=== PATIENT | male | born 1975 | race Caucasian/White ===

== ENCOUNTER 2024-03-23 10:21 | Outpatient (REF) | payer OTHER, SELFPAY ==
[2024-03-23 14:17] LABS: MANUAL DIFF FLAG NO
[2024-03-23 14:28] LABS: Basophils Absolute Auto 0.1 X10*3/uL (0.0-0.2); Basophils Percent Auto 1.1 % (0-2); Eosinophils Absolute Auto 0.2 X10*3/uL (0.0-0.4); Eosinophils Percent Auto 2.8 % (0-4); Hematocrit 41.2 % (42.0-52.0); Hemoglobin 14.1 g/dl (14.0-18.0); Imm Gran Abs Auto 0.03 X10*3/uL (0.00-0.03); Imm Gran Pct Auto 0.4 % (0.0-0.4); Lymphocytes Absolute Auto 1.9 X10*3/uL (1.2-4.9); Lymphocytes Percent Auto 23.1 % (20-40); Mean Corpuscular HGB Conc 34.2 g/dl (31.0-36.0); Mean Corpuscular Hemoglobin 29.5 pg (27.0-33.0); Mean Corpuscular Volume 86.2 fL (80.0-98.0); Mean Platelet Volume 10.2 fL (9.4-12.4); Monocytes Absolute Auto 0.6 X10*3/uL (0.1-1.2); Monocytes Percent Auto 7.8 % (2-11); Neutrophils Absolute Auto 5.3 x10*3/uL (2.0-8.3); Neutrophils Percent Auto 64.8 % (45-73); Platelet Count 314 X10*3/uL (160-400); Red Blood Count 4.78 X10*6/uL (4.60-5.80); Red Cell Distribution Width 12.3 % (11.0-16.0); White Blood Count 8.2 X10*3/uL (4.8-10.8)
[2024-03-23 14:54] LABS: Alanine Aminotransferase 15 U/L (0-40); Albumin Level 4.4 g/dL (3.5-5.0); Alkaline Phosphatase 63 U/L (39-117); Anion Gap 15 (12-20); Aspartate Amino Transferase 22 U/L (5-37); Bilirubin Total 0.7 mg/dL (0.0-1.0); Blood Urea Nitrogen 12 mg/dL (9-16); Calcium 9.4 mg/dL (8.4-10.2); Carbon Dioxide 27 mmol/L (22-29); Chloride 102 mmol/L (96-108); Cholesterol 202 mg/dL (<200); Estimated Glomerular Filt Rate > 60; Glucose Random 138 mg/dL (60-115); HDL Cholesterol 38 mg/dL (>40); LDL Cholesterol Calculated 137 mg/dL (<100); Sodium 140 mmol/L (135-145); Total Protein 7.1 g/dL (6.5-8.0); Triglycerides 138 mg/dL (<150)
[2024-03-23 15:12] LABS: TSH reflex Free T4 1.83 uIU/mL (0.32-4.0)
[2024-03-24 08:15] LABS: HIV AB/AG Nonreactive (Nonreactive); HIV Num 1 0.05 S/CO (0.00-0.99); ~HepC Num1 0.12 S/CO (0.00-0.79); ~Hepatitis C Antibody Nonreactive (Nonreactive)
== END 2024-03-23 10:22 | disposition home or self-care (01) ==
LOC: HO.CHCLDS 10:21
PROVIDERS: Visit Provider Internal Medicine
DX: Z00.00 Encounter for general adult medical examination without abnormal findings (principal); I10 Essential (primary) hypertension; E11.65 Type 2 diabetes mellitus with hyperglycemia; E03.9 Hypothyroidism, unspecified
CPT/HCPCS: 36415; 80053; 80061; 84443; 85025; 86803; 87389

== ENCOUNTER → 2024-06-09 15:07 | Outpatient (REF) | payer OTHER, SELFPAY ==
--- NOTE | 2024-06-09 15:10 | CA_ITS ---
Transthoracic Echocardiogram Amended Patient (Last, First, Middle): Richard Parson J Gender: Male Date of : 1975 Age: 48 Procedure Date: 06/09/2024 Procedure Type: Transthoracic Echocardiogram Location: OP Height: 170.18 cm Weight: 85.28 kg BSA: 1.97 m2 Heart Rate: 77 bpm BP: 125 / 76 mmHg Floor Polisher: SB Referring MD: Katina Guevara MD Equal Opportunity Representative: Jersey Ariza MD Symptoms: HTN I1.0 DM Q BWAVE IN LEAD 111 Study Quality: Adequate ECG Rhythm: Sinus Conclusions: - 1. Low normal LV ejection fraction 50-55% with wall motion abnormality that could suggest underlying coronary artery disease 2. Normal cardiac valvular Dopplers 3. Normal RV systolic pressure 4. No gross pericardial effusion Findings Left Ventricle Normal left ventricular cavity size. There is normal left ventricular wall thickness. The left ventricular systolic function is low normal. The visually estimated ejection fraction is between 50-55%. Spectral Doppler is indicative of a normal filling pattern. Wall Motion Rest Echo Findings The inferoseptal wall and basal inferior segment are hypokinetic. All other scored wall segments showed normal motion. Right Ventricle Normal right ventricular cavity size and systolic function. Atria Both atria are normal in size. There is no evidence of interatrial shunt. Aortic Valve Normal aortic valve structure and function. There is no aortic valve stenosis. There is no aortic valve regurgitation. Mitral Valve Normal mitral valve structure and function. There is trace mitral valve regurgitation. There is no mitral valve stenosis. Pulmonic Valve The pulmonic valve was not well visualized. Tricuspid Valve Likely normal tricuspid valve structure and function. There is trace tricuspid valve regurgitation. The right ventricular systolic pressure is normal. The right ventricular systolic pressure is 23 mmHg. Normal right atrial pressure. There is no evidence of pulmonary hypertension. Great Vessels All visible segments of the aorta are normal in size. The pulmonary artery was not well visualized. There is no dilatation of the ascending aorta measuring 3.40 cm. Venous The inferior vena cava is normal in size and collapses greater than 50% with inspiration. Pericardium/Pleural There is no evidence of pericardial effusion. Prior Study Comparison No prior study available for comparison. Measurements 2D Linear Measurements IVSd: 1.20 0.6-0.9/0.6-1.0 cm LVIDd: 4.43 3.9-5.3/4.2-5.9 cm LVIDd Index: 2.25 2.4-3.2/2.2-3.1 cm/m2 LVIDs: 3.09 2.0-3.6 cm LVPWd: 0.68 0.7-1.1 cm LV Mass: 170.25 67-162/88-224 g LV Mass Index: 86.42 43-95/49-115 g/m2 LVOT Diam: 2.30 3.0+(-)1.3 cm 2D Volumes LA Vol: 20.70 2D Systolic Function EF 4C: 50.60 >55% EF 2C: 58.30 >55% EF BiP: 53.90 >55% Mitral Valve MV Pk E: 0.90 MV PK A: 0.85 MV Decel Time: 170.00 E/A: 1.10 E'Lateral: 8.43 E'Medial: 5.49 E/E' Med: 16.40 E/E' Lat: 10.70 PHT: 50.00 MVA PHT: 4.40 Decel Grady: 5.29 Aortic Valve AoV Pk Cooper: 1.07 AoV Pk Grad: 5.00 STEVEN: 3.54 LVOT LVOT Pk Cooper: 0.91 LVOT Mn Cooper: 0.69 LVOT VTI: 0.20 LVOT Pk Grad: 3.00 LVOT Mn Grad: 2.00 LVOT Diam: 2.30 LVOT Area: 4.15 Diastolic Function MV Pk E: 0.90 MV Pk A: 0.85 E/A: 1.10 E'Medial: 5.49 E/E' Med: 16.40 E' Laterial: 8.43 E/E' Lat: 10.70 Right Ventricle TAPSE (mm): 17.40 TVS' Cooper: 13.70 Tricuspid Valve TR Pk Cooper: 2.22 TR Pk Grad: 20.00 RA Press: 3.00 RVSP: 23.00 Great Vessels Aorta Sinus of Valsalva: 3.80 2.0-3.5 cm Ao Asc: 3.40 2.1-3.4 cm Pulmonary Veins Pulm Vein S/D 1.30 Pulmonary Valve PV Pk Cooper: 0.87 Peak PV Grad: 3.00 Updated in Other Vendor System with Status of Final Jersey Ariza MD electronically signed on 06/10/2024 4:06:30 PM with status of Final
== END ==
LOC: HO.CARD 15:07
PROVIDERS: PCP Internal Medicine; Visit Provider Internal Medicine
DX: I10 Essential (primary) hypertension (principal); E11.65 Type 2 diabetes mellitus with hyperglycemia
CPT/HCPCS: 93306

== ENCOUNTER → 2024-06-09 15:10 | Outpatient (BNV) | payer OTHER, SELFPAY | PROVIDERS: PCP Internal Medicine; Visit Provider Internal Medicine Cardiovascular Disease | DX: I10 Essential (primary) hypertension (principal); I36.1 Nonrheumatic tricuspid (valve) insufficiency | CPT/HCPCS: 93306 ==

== ENCOUNTER 2024-06-12 15:42 | Outpatient (REF) | payer OTHER, SELFPAY ==
--- OUTSIDE RECORDS SUMMARY | 2024-06-12 15:44 | XMS_ITS | Encounter Summary ---
Author Organization [employer] Address [address] [address] Care Team Providers Care Wine Sales Representative Name Role Phone Katina Guevara MD Primary Care Provider [phone] Encounter Details Date Type Department Care Team ([facility] st Contact Info) Description 05/27/2024 Orders Only [facility] CHC MED & PEDS [address] [place], [place] [phone] Katina Guevara MD [address] [place] [address] Social History Tobacco Use Types Packs/Day Years Used Date Smoking Tobacco: Never Smokeless Tobacco: Never Alcohol Use Standard Drinks/Week Comments Never 0 (1 standard drink = 0.6 oz pur e alcohol) Alcohol Answer Date Recorded Q1: How often do you have a drink containing alc ohol? 2 03/23/2024 Q2: How many drinks containi ng alcohol do you have on a typical day when you are drinking? 0 03/23/2024 Q3: How often do you have six or more drinks on one occasion? 2 03/23/2024 Depression Answer Date Recorded Patient Health Questionnaire-9 Score 0 03/23/2024 Patient Health Questionnaire-9 Score 0 03/23/2024 Last PHQ-9: Questionnaire Data Not on file 1 05/23/2023 Housing Stability Answer Date Recorded What is your housing situation today? I have chad bowen 03/12/[address] you li ve. Do you have problems with any of the following? None of the above 03/12/2024 Food Insecurity Answer Date Recorded Within the past 12 months, y ou worried that your food would run out before you got money to buy more: Never True 03/12/2024 Within the past 12 months,th e food you bought just didn't last and you didn't have enough money to get more: Never True Transportation Answer Date Recorded In the past 12 months, has l ack of transportation kept you from medical appts, meetings, work or from getting things needed for daily living? No 03/12/2024 Utilities Answer Date Recorded In the past 12 months, has t he electric, gas, oil or water company threatened to shut off services in your home? No 03/12/2024 Depression Answer Date Recorded Patient Health Questionnaire-2 Score 0 03/23/2024 Internet Access Answer Date Recorded Internet Access Q1 Yes 03/12/2024 Internet Access Q2 Not on file 03/12/2024 Sex and Gender Information Value Date Recorded Sex Assigned at Male 02/26/2022 10:37 AM EDT Legal Sex Male 10:37 AM EDT Gender Identity Male 02/26/2022 10:37 AM EDT Sexual Orientation Straight 02/26/2022 10 :37 AM EDT documented as of this encounter Plan of Treatment Upcoming Encounters Date Type Department Care Team (Late st Contact Info) Description 06/18/2024 9:00 AM EST Telemedicine [facility] MED & PEDS [address] [place] [address] Katina Guevara MD [address] [place] [address] documented as of this encounter Visit Diagnoses Not on filedocumented in this encounter Additional Health Concerns Assessment Noted Time PHQ-9 Depression Total Score: 0 03/23/20 24 10:15 AM EST documented as of this encounter Care Teams Wine Sales Representative Relationship Specialty Start Date End Date Katina Guevara MD [address] [place] [address] PCP - General Internal Medicine 06/28/20 documented as of this encounter
--- OUTSIDE RECORDS SUMMARY | 2024-06-12 15:44 | XMS_ITS | Encounter Summary ---
Author Organization [employer] Address [address] [place] [address] Care Team Providers Care Drafter Castings Name Role Phone Katina Guevara MD Primary Care Provider [phone] Reason for Visit * Reason Comments Med Refill Encounter Details Date Type Department Care Team (Late st Contact Info) Description 02/03/2023 Refill [facility] MED & PEDS [address] [place] [address] Katina Guevara MD [address] [place] [address] Social History Tobacco Use Types Packs/Day Years Used Date Smoking Tobacco: Never Assessed Sex and Gender Information Value Date Recorded Sex Assigned at Male 02/26/2022 10:37 AM EDT Legal Sex Male 10:37 AM EDT Gender Identity Male 02/26/2022 10:37 AM EDT Sexual Orientation Straight 02/26/2022 10 :37 AM EDT documented as of this encounter Plan of Treatment Upcoming Encounters Date Type Department Care Team (Late st Contact Info) Description 06/18/2024 9:00 AM EST Telemedicine [facility] CHC MED & PEDS [address] [place] [address] Katina Guevara MD [address] [place] [address] documented as of this encounter Visit Diagnoses Not on filedocumented in this encounter Care Teams Drafter Castings Relationship Specialty Start Date End Date Katina Guevara MD [address] [place], [place] [address] [address] PCP - General Internal Medicine 06/28/20 documented as of this encounter
--- OUTSIDE RECORDS SUMMARY | 2024-06-12 15:44 | XMS_ITS | Encounter Summary ---
Author Organization [employer] Address [address] [address] Care Team Providers Care Building Maintenance Supervisor Name Role Phone Katina Guevara MD Primary Care Provider [phone] Encounter Details Date Type Department Care Team ([facility] st Contact Info) Description 04/17/2024 Orders Only [facility] CHC MED & PEDS [address] [place], [place] [phone] Katina Guevara MD [address] [place] [address] Primary hypertension Social History Tobacco Use Types Packs/Day Years [...] Info) Description 06/18/2024 9:00 AM EST Telemedicine [facility] MED & PEDS [address] [place] [address] Katina Guevara MD [address] [place] [address] documented as of this encounter Visit Diagnoses Diagnosis Primary hypertension Unspecified essential hypertension documented in this encounter Additional Health Concerns Assessment Noted Time PHQ-9 Depression Total Score: 0 03/23/20 24 10:15 AM EST documented as of this encounter Care Teams Building Maintenance Supervisor Relationship Specialty Start Date End Date Katina Guevara MD [address] [place] [address] PCP - General Internal Medicine 06/28/20 documented as of this encounter
--- OUTSIDE RECORDS SUMMARY | 2024-06-12 15:44 | XMS_ITS | Encounter Summary ---
Author Organization [employer] Address [address] [address] Care Team Providers Care Transcriptionist Name Role Phone Katina Guevara MD Primary Care Provider [phone] Encounter Details Date Type Department Care Team (Latest Contact Info) Description 03/23/2024 Orders Only [facility] CHC MED & PEDS [address] [place], [place] [phone] Katina Guevara MD [address] [place] [address] Hypercholesterolemia (Primary Dx); Primary hypertension Social History Tobacco Use Types [...] Info) Description 06/18/2024 9:00 AM EST Telemedicine [facility] MED & PEDS [address] [place] [address] Katina Guevara MD [address] [place] [address] documented as of this encounter Visit Diagnoses Diagnosis Hypercholesterolemia- Primary Pure hypercholesterolemia Primary hypertension Unspecified essential hypertension documented in this encounter Additional Health Concerns Assessment Noted Time PHQ-9 Depression Total Score: 0 03/23/20 24 10:15 AM EST documented as of this encounter Care Teams Transcriptionist Relationship Specialty Start Date End Date Katina Guevara MD [address] [place] [address] PCP - General Internal Medicine 06/28/20 documented as of this encounter
--- OUTSIDE RECORDS SUMMARY | 2024-06-12 15:44 | XMS_ITS | Encounter Summary ---
Author Organization [employer] Address [address] [place] [address] Care Team Providers Care Printing Film Stripper Name Role Phone Katina Guevara MD Primary Care Provider [phone] Encounter Details Date Type Department Care Team (Late Contact Info) Description 07/24/2023 Orders Only [facility] MED & PEDS [address] [place] [address] Katina Guevara MD [address] [place] [address] Type 2 diabetes mellitus with hyperglycemia, without long-term current use of insulin ([facility]) (Primary Dx); Acquired hypothyroidism Social History Tobacco Use Types Packs/Day Years Used Date Smoking Tobacco: Never Smokeless Tobacco: Never Alcohol Use Standard Drinks/Week Comments Never 0 (1 standard drink = 0.6 oz pur e alcohol) Sex and Gender Information Value Date Recorded Sex Assigned at Male 02/26/2022 10:37 AM EDT Legal Sex Male 10:37 AM EDT Gender Identity Male 02/26/2022 10:37 AM EDT Sexual Orientation Straight 02/26/2022 10 :37 AM EDT documented as of this encounter Plan of Treatment Upcoming Encounters Date Type Department Care Team (Late Contact Info) Description 06/18/2024 9:00 AM EST Telemedicine [facility] CHC MED & PEDS [address] [place] [address] Katina Guevara MD [address] [place], [place] [phone] documented as of this encounter Visit Diagnoses Diagnosis Type 2 diabetes mellitus with hyperglycemia, without long-term current use of insulin ([facility])- Primary Acquired hypothyroidism Unspecified hypothyroidism documented in this encounter Care Teams Printing Film Stripper Relationship Specialty Start Date End Date Katina Guevara MD [address] [place] [address] PCP - General Internal Medicine 06/28/20 documented as of this encounter
--- OUTSIDE RECORDS SUMMARY | 2024-06-12 15:44 | XMS_ITS | Encounter Summary ---
Author Organization [employer] Address [address] [place] [address] Care Team Providers Care Custom Applicator Name Role Phone Katina Guevara MD Primary Care Provider [phone] Encounter Details Date Type Department Care Team (Late st Contact Info) Description 02/13/[address] [facility] MED & PEDS [address] [place] [address] Katina Guevara MD [address] [place] [address] Social History Tobacco Use Types Packs/Day Years [...] Info) Description 06/18/2024 9:00 AM EST Telemedicine [facility] CHC MED & PEDS [address] [place] [address] Katina Guevara MD [address] [place] [address] documented as of this encounter Visit Diagnoses Not on filedocumented in this encounter Care Teams Custom Applicator Relationship Specialty Start Date End Date Katina Guevara MD [address] [place] [address] PCP - General Internal Medicine 06/28/20 documented as of this encounter
--- OUTSIDE RECORDS SUMMARY | 2024-06-12 15:44 | XMS_ITS | Encounter Summary ---
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) Katina Geuvara MD [address] [place] [address] Phone: tel: fax: Referral ID Status Reason Start Date Expiration Date Visits Re quested Visits Authorized [id number] Closed 1 1 Encounter Details Date Type Department Care Team ([facility] Contact Info) Description 10/25/2023 Orders Only [facility] CHC MED & PEDS [address] [place] [address] Katina Guevara MD [address] [place] [address] Acquired hypothyroidism; 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
--- OUTSIDE RECORDS SUMMARY | 2024-06-12 15:44 | XMS_ITS | Encounter Summary ---
Author Organization [employer] Address [address] [place] [address] Care Team Providers Care Organizational Development Manager Name Role Phone Katina Guevara MD Primary Care Provider [phone] Reason for Visit * Reason Comments Med Change Request Encounter Details Date Type Department Care Team (Late Contact Info) Description 09/19/2023 Refill [facility] MED & PEDS [address] [place] [address] Katina Guevara MD [address] [place] [address] Type 2 diabetes mellitus with hyperglycemia, without long-term current use of insulin ([facility]) Social History Tobacco Use Types Packs/Day Years [...] Info) Description 06/18/2024 9:00 AM EST Telemedicine [facility] CHC MED & PEDS [address] [place] [address] Katina Guevara MD [address] [place] [address] documented as of this encounter Visit Diagnoses Diagnosis Type 2 diabetes mellitus with hyperglycemia, without long-term current use of insulin ([facility]) documented in this encounter Care Teams Organizational Development Manager Relationship Specialty Start Date End Date Katina Guevara MD [address] [place] [address] PCP - General Internal Medicine 06/28/20 documented as of this encounter
--- OUTSIDE RECORDS SUMMARY | 2024-06-12 15:44 | XMS_ITS | Encounter Summary ---
Author Organization [employer] Address [address] [place] [address] Care Team Providers Care Furnace Combustion Tester Name Role Phone Katina Guevara MD Primary Care Provider [phone] Encounter Details Date Type Department Care Team (Late st Contact Info) Description 03/19/2023 Orders Only [facility] MED & PEDS [address] [place] [address] Katina Guevara MD [address] [place] [address] Social History Tobacco Use Types Packs/Day Years [...] Info) Description 06/18/2024 9:00 AM EST Telemedicine [facility] CHC MED & PEDS [address] [place] [address] Katina Guevara MD [address] [place] [address] documented as of this encounter Visit Diagnoses Not on filedocumented in this encounter Care Teams Furnace Combustion Tester Relationship Specialty Start Date End Date Katina Guevara MD [address] [place] [address] PCP - General Internal Medicine 06/28/20 documented as of this encounter
--- OUTSIDE RECORDS SUMMARY | 2024-06-12 15:44 | XMS_ITS | Encounter Summary ---
Author Organization [employer] Address [address] [address] Care Team Providers Care Monkey Breeder Name Role Phone Katina Guevara MD Primary Care Provider [phone] Encounter Details Date Type Department Care Team (Late Contact Info) Description 11/27/2023 Orders Only [facility] MED & PEDS [address] [place] [address] Katina Guevara MD [address] [place] [address] Social History Tobacco Use Types Packs/Day Years [...] Info) Description 06/18/2024 9:00 AM EST Telemedicine [facility] CHC MED & PEDS [address] [place] [address] Katina Guevara MD [address] [place] [address] documented as of this encounter Visit Diagnoses Not on filedocumented in this encounter Care Teams Monkey Breeder Relationship Specialty Start Date End Date Beauzile, Thevenin, MD [address] [place] [address] PCP - General Internal Medicine 06/28/20 documented as of this encounter
--- OUTSIDE RECORDS SUMMARY | 2024-06-12 15:44 | XMS_ITS | Encounter Summary ---
Author Organization [employer] Address 75 [facility] [address] [place] [address] Care Team Providers Care Varitype Operator Name Role Phone Ktaina Guevara MD Primary Care Provider [phone] Reason for Referral * Consultation (Routine) - Authorized Specialty Diagnoses / Procedures Referred By Alex garrido Referred To Contact Cardiology Diagnoses Primary hypertension Regional wall motion abnormality of heart Katina Guevara MD [address] [place] [address] Phone: tel: fax: Jersey Ariza MD [address] [place] [address] 3rd [place] [address] Phone: tel: Referral ID Status Reason Start Date Expiration Date Visits Requested Visits Authorized [id number] Authorized Specialty Services Required 06/11/2024 06/11/2025 1 1 Encounter Details Date Type Department Care Team (Late st Contact Info) Description 06/11/2024 Orders Only [facility] CHC MED & PEDS [address] [place] [address] Katina Guevara MD [address] [place] [address] Primary hypertension (Primary Dx); Regional wall motion abnormality of heart Social History Tobacco Use Types Packs/Day Years [...] Upcoming Encounters Date Type Department Care Team ([facility] st Contact Info) Description 06/18/2024 9:00 AM EST Telemedicine [facility] CHC MED & PEDS 505 [facility] [place] [address] Katina Guevara MD [address] [place] [address] Scheduled Referrals Name Type Priority Associated Diagnoses Orde r Schedule Referral to Cardiology Outpatient Referral Routine Primary hypertension Regional wall motion abnormality of heart Expected: 06/11/2024 (Approximate), Expires: 06/11/2025 documented as of this encounter Visit Diagnoses Diagnosis Primary hypertension- Primary Unspecified essential hypertension Regional wall motion abnormality of heart documented in this encounter Additional Health Concerns Assessment Noted Time PHQ-9 Depression Total Score: 0 03/23/20 24 10:15 AM EST documented as of this encounter Care Teams Varitype Operator Relationship Specialty Start Date End Date Katina Guevara MD [address] [place] [address] PCP - General Internal Medicine 06/28/20 documented as of this encounter
--- OUTSIDE RECORDS SUMMARY | 2024-06-12 15:44 | XMS_ITS | Encounter Summary ---
Author Organization [email or web address] Address [address] [address] Care Team Providers Care Senior Medical Writer Name Role Phone Katina Guevara MD Primary Care Provider [phone] Encounter Details Date Type Department Care Team (Late Contact Info) Description 08/22/2023 Orders Only [facility] MED & PEDS [address] [place] [address] Katina Guevara MD [address] [place] [address] Type 2 diabetes mellitus with hyperglycemia, without long-term current use of insulin ([facility]) (Primary Dx) Social History Tobacco Use Types Packs/Day Years [...] Info) Description 06/18/2024 9:00 AM EST Telemedicine [facility] MED & PEDS [address] [place] [address] Katina Guevara MD [address] [place] [address] documented as of this encounter Visit Diagnoses Diagnosis Type 2 diabetes mellitus with hyperglycemia, without long-term current use of insulin ([facility])- Primary documented in this encounter Care Teams Senior Medical Writer Relationship Specialty Start Date End Date Katina Guevara MD [address] [place] [address] PCP - General Internal Medicine 06/28/20 documented as of this encounter
--- OUTSIDE RECORDS SUMMARY | 2024-06-12 15:44 | XMS_ITS | Clinical Summary ---
Author Organization [facility] Address [address] [place] [address] Care Team Providers Care Compensation Intern Name Role Phone Dennis Abraham Primary Care Provider [phone] Allergies No known active allergies Medications Medication Sig Dispensed Refills Start Date End Date Status glipiZIDE (GLUCOTROL) 5 MG tablet Take 5 mg by mouth daily. 1 06/20/2018 Active levothyroxine (SYNTHROID, LEVOTHROID) 50 MCG tablet Take 50 mcg by mouth daily. 1 06/29/2018 Active metFORMIN (GLUCOPHAGE) 1000 MG tablet TAKE 1 TAB BY MOUTH WITH BREAKFAST AND 1.5 TABS WITH SUPPER ORALLY 1 05/27/2018 Active benzonatate (TESSALON) 200 MG capsuleIndications:A cute bronchitis, unspecified organism Take 1 capsule (200 mg total) by mouth 3 (three) times a day as needed for cough. 20 capsule 08/18/2018 Active azithromycin (ZITHROMAX) 250 MG tabletIndications:Ac ree bronchitis, unspecified organism Take 2 tabs PO on day one and one tabs on days 2-5 #6 6 tablet 08/18/2018 Active Active Problems No known active problems Social History Tobacco Use Types Packs/Day Years Used Date Smoking Tobacco: Never Assessed Sex and Gender Information Value Date Recorded Sex Assigned at Not on file Gender Identity Not on file Sexual Orientation Not on file Last Filed Vital Signs Vital Sign Reading Time Taken Comments Blood Pressure 172/93 08/18/2018 8:15 AM EDT Pulse 99 08/18/2018 8:15 AM EDT Temperature 37.5 ??C (99.5 ??F) 08/18/2018 8:15 AM ED T Respiratory Rate - - Oxygen Saturation 95% 08/18/2018 8:15 AM EDT Inhaled Oxygen Concentration - - Weight 85.3 kg (188 lb) 08/18/2018 8:15 AM EDT Height 170.2 cm (5' 7 ) 08/18/2018 8:15 AM EDT Body Mass Index 29.44 08/18/2018 8:15 AM EDT Plan of Treatment Health Maintenance Due Date Last Done Comments Hepatitis C Virus Screening 1975 HIV Screening 07/21/1988 DTaP/Tdap/Td Vaccines (1 - Tdap) 07/21/1994 Hepatitis B Vaccines (1 of 3 - 19+ 3-dose series) 07/21/1994 Colonoscopy 07/21/2020 Influenza Vaccine 11/28/2023 COVID-19 Vaccine ( - 2023-2 5 season) 2023 Pneumococcal Vaccine: Pediat arabelal (0-5 Years) and At-Risk Patients (6 to 49 Years) Aged Out No longer eligible b ased on patient's age to complete this topic Care Teams Compensation Intern Relationship Specialty Start Date End Date Dennis Abraham [address] [place] [id number] PCP - General 08/18/18
--- OUTSIDE RECORDS SUMMARY | 2024-06-12 15:44 | XMS_ITS | Clinical Summary ---
Author Organization [facility] Address [address] [place] [address] Care Team Providers Care Toilet Attendant Name Role Phone Unavailable Primary Care Provider Unavailabl e Allergies No known active allergies Immunizations Name Administration Dates Next Due Covid-19 (Pfizer) Dilution Required 09/06/2020,0 08/16/2020 Social History Tobacco Use Types Packs/Day Years Used Date Smoking Tobacco: Never Assessed Sex and Gender Information Value Date Recorded Sex Assigned at Not on file Gender Identity Not on file Sexual Orientation Not on file Job Start Date Occupation Industry Not on file Not on file Not on file Plan of Treatment Health Maintenance Due Date Last Done Comments Hepatitis B Vaccines (1 of 3 - 3-dose series) 1975 Hepatitis C Screening 1975 Depression Screening 1987 Preventative Health Evaluation 07/21/1993 DTap / Tdap / Td (1 - Tdap) 07/21/1994 Colon Cancer Screening (Colonoscopy) 07/21/2020 COVID-19 Vaccine (2023-2 5 season) 2023 09/06/2020, 08/16/2020 Influenza Vaccine (#1) 2023 Pneumococcal Vaccine Aged Out No long er eligible based on patient's age to complete this topic RSV Ped < 20 months Aged Out No longe r eligible based on patient's age to complete this topic
--- OUTSIDE RECORDS SUMMARY | 2024-06-12 15:44 | XMS_ITS | Encounter Summary ---
Author Organization [employer] Address [address] [address] Care Team Providers Care Press Officer Name Role Phone Katina Guevara MD Primary Care Provider [phone] Encounter Details Date Type Department Care Team (Late Contact Info) Description 06/19/2023 Orders Only [facility] [address] [place] [address] Katina Guevara MD [address] [place] [address] Social History Tobacco Use Types Packs/Day Years [...] Info) Description 06/18/2024 9:00 AM EST Telemedicine [facility] [address] [place] [address] Katina Guevara MD [address] [place] [address] documented as of this encounter Visit Diagnoses Not on filedocumented in this encounter Care Teams Press Officer Relationship Specialty Start Date End Date Beauzile, Thevenin, MD [address] [place] [id number] PCP - General Internal Medicine 06/28/20 documented as of this encounter
--- OUTSIDE RECORDS SUMMARY | 2024-06-12 15:44 | XMS_ITS | Clinical Summary ---
Author Organization [employer] Address [address] [place] [address] Care Team Providers Care Glued Wood Tester Name Role Phone Katina Guevara MD Primary Care Provider [phone] Allergies No known active allergies Medications ergocalciferol (Vitamin D-2) 1.25 MG (52319 UT) capsule 1 capsule a week for 12 weeks 1 Active dapagliflozin (Farxiga) 5 MGIndications:Type 2 diabetes mellitus with hyperglycemia, without long-term current use of insulin (CMS/HCC) Take 1 tablet (5 mg) by mouth in the morning. 30 tablet 11 4 Active metFORMIN (Glucophage) 1000 MG tabletIndications:T ype 2 diabetes mellitus with hyperglycemia, without long-term current use of insulin (CMS/HCC) Take 1 tablet (1,000 mg) by mouth every 12 (twelve) hours. 180 tablet 3 4 Active dulaglutide (Trulicity) 3 MG/0.5ML solution pen-injectorIndicat ions:Type 2 diabetes mellitus with hyperglycemia, without long-term current use of insulin (CMS/HCC) Inject 3 mg under the skin 1 (one) time per week. 12 each 3 4 Active levothyroxine (Synthroid, Levoxyl) 50 MCG tabletIndications:A cquired hypothyroidism Take 1 tablet (50 mcg) by mouth before breakfast. 90 tablet 3 4 10/20/19 25 Active metFORMIN (Glucophage) 1000 MG tabletIndications:T ype 2 diabetes mellitus with diabetic dermatitis (CMS/HCC) Take 1 tablet (1,000 mg) by mouth 2 times daily. 180 tablet 3 4 Active dulaglutide (Trulicity) 1.5 MG/0.5ML solution pen-injectorIndicat ions:Type 2 diabetes mellitus with diabetic dermatitis ([facility]) Inject 1.5 mg under the skin 1 (one) time per week. 4 each 4 Active Continuous Glucose Agricultural Extension Specialist (FreeStyle Torri 2 Pearblossom) deviceIndications:T ype 2 diabetes mellitus with hyperglycemia, without long-term current use of insulin ([facility]) Scan sensor every 8 hours 1 each 4 Active Continuous Glucose Sensor (FreeStyle Torri 2 Sensor) miscIndications:Typ e 2 diabetes mellitus with hyperglycemia, without long-term current use of insulin ([facility]) Apply 1 sensor every 14 days 2 each 4 Active atorvastatin (Lipitor) 20 MG tabletIndications:H ypercholesterolemia Take 1 tablet (20 mg) by mouth Once per day. 30 tablet 11 4 03/23/20 25 Active lisinopril 10 MG tabletIndications:P rimary hypertension Take 1 tablet (10 mg) by mouth Once per day. 30 tablet 3 4 08/16/19 25 Active hydroCHLOROthiazide 12.5 MG tabletIndications:P rimary hypertension Take 1 tablet (12.5 mg) by mouth Once per day. 30 tablet 11 5 05/27/19 26 Active Active Problems Problem Noted Date Diagnosed Date Hypothyroidism 04/04/2023 04/04/2023 Type 2 diabetes mellitus 04/04/2023 023 Hypertensive disorder 10/03/2021 04/04/2023 Encounters Date Type Department Care Team Description 06/11/2024 Orders Only [facility] [address] [place] [address] Katina Guevara MD Primary hypertension (Primary Dx); Regional wall motion abnormality of heart 05/27/2024 9:00 AM EST Office Visit [facility] [address] [place], [place] [phone] Katina Guevara MD Primary hypertension (Primary Dx); Type 2 diabetes mellitus with hyperglycemia, without long-term current use of insulin ([facility]) 05/27/2024 Orders Only [facility] [address] [place] [address] Katina Guevara MD 05/27/2024 Travel 04/17/2024 Orders Only [facility] [address] [place] [address] Katina Guevara MD Primary hypertension 04/17/2024 Telephone [facility] [address] [place] [address] Katina Guevara MD 03/24/2024 Telephone [facility] [address] [place] [address] Mei Baires, RN Results 03/23/2024 9:30 AM EST Office Visit [facility] [address] [place] [address] Katina Guevara MD Annual physical exam (Primary Dx); Primary hypertension; Acquired hypothyroidism; Type 2 diabetes mellitus with hyperglycemia, without long-term current use of insulin ([facility]); Encounter for immunization 03/23/2024 Orders Only [facility] [address] [place] [address] Katina Guevara MD Hypercholesterolemia (Primary Dx); Primary hypertension 03/23/2024 Travel 03/12/2024 Patient Outreach [facility] [address] [place] [address] Katina Guevara MD Pre-visit Planning (SDOH negative, Tobacco screening negative.) from Last 3 Months Immunizations Name Administration Dates Next Due Influenza, seasonal, injectable, preservative fr ee 03/23/2024 Pfizer Covid-19 Vaccine 12+ 03/23/2024 Pneumococcal Conjugate PCV 20 10/03/2021 Tdap 10/03/2021 Family History Medical History Relation Name Comments Diabetes type II Father Diabetes type II Mother Relation Name Status Comments Father Mother Social History Tobacco Use Types Packs/Day Years Used Date Smoking Tobacco: Never Smokeless Tobacco: Never Tobacco Cessation:Counseling Given: No Alcohol Use Standard Drinks/Week Comments Never 0 [...] Orientation Straight 02/26/2022 10 :37 AM EDT Last Filed Vital Signs Vital Sign Reading Time Taken Comments Blood Pressure 176/100 05/27/2024 9:07 AM EST Pulse 74 05/27/2024 9:07 AM EST Temperature 36.7 ??C (98 ??F) 05/27/2024 9:07 AM EST Respiratory Rate 20 05/27/2024 9:07 AM EST Oxygen Saturation 98% 05/27/2024 9:07 AM EST Inhaled Oxygen Concentration - - Weight 85.7 kg (189 lb) 05/27/2024 9:07 AM EST Height 175.3 cm (5' 9 ) 05/27/2024 9:07 AM EST Body Mass Index 27.91 05/27/2024 9:07 AM EST Plan of Treatment Upcoming Encounters Date Type Department Care Team (Late st Contact Info) Description 06/18/2024 9:00 AM EST Telemedicine [facility] [address], [place] [phone] Katina Guevara MD [address] [place], [place] [phone] Health Maintenance Due Date Last Done Comments CT Colonography 1975 Colonoscopy 1975 FIT 1975 FOBT 1975 Sigmoidoscopy 1975 Eye Exam 07/21/1985 Family Planning (PISQ) 07/21/1990 Hepatitis B Vaccines (1 of 3 - 19+ 3-dose series) 07/21/1994 Diabetes: Urine Protein Screening 04/19/2021 04/19/2020 Diabetes: Hemoglobin A1C 09/20/2024 03/23/2024, 03/30 SDOH Screening 03/12/2025 03/12/2024 Alcohol/Substance Use Screening 03/23/2025 03/23/2024 Depression Screening 03/23/2025 03/23/2024, 03/23/20 24 Diabetes: Foot Exam 03/23/2025 03/23/2024, 04/04/2023, 04/04/2023, Additional history exists Lipid Panel 03/23/2025 03/23/2024, 04/19/2020 Tobacco Screening 05/27/2025 05/27/2024 Zoster Vaccines (1 of 2) 07/21/2025 Colorectal Cancer Screening 05/05/2026 FIT DNA/Cologuard 05/05/2026 05/05/2023 DTaP/Tdap/Td Vaccines (2 - Td or Tdap) 10/04/2031 10/03/2021 RSV Patients and Patients Aged 60 years or older (1 - 1-dose 75+ series) 07/21/2050 Pneumococcal Vaccine: Pediatrics (0 to 5 Years) and At-Risk Patients (6 to 49) Years) Completed 10/03/2021 COVID-19 Vaccine Completed 03/23/2024, 02/2021, 08/16/2020 HIV Screening Completed 03/23/2024 Hepatitis C Screening Completed 03/23/2024 Influenza Vaccine Completed 03/23/2024 HIB Vaccines Aged Out No longer eligi ble based on patient's age to complete this topic HPV Vaccines Aged Out No longer eligi ble based on patient's age to complete this topic Hepatitis A Vaccines Aged Out No long er eligible based on patient's age to complete this topic IPV Vaccines Aged Out No longer eligi ble based on patient's age to complete this topic Meningococcal Vaccine Aged Out No handy teddy eligible based on patient's age to complete this topic RSV under 20 months Aged Out No longe r eligible based on patient's age to complete this topic Rotavirus Vaccines Aged Out No longer eligible based on patient's age to complete this topic Procedures Procedure Name Priority Date/Time Associated Diagnosis Comments ECG 12-LEAD Routine 05/27/2024 10:23 AM EST Primary hypertension POCT GLUCOSE Routine 05/27/2024 9:35 AM EST Type 2 diabetes mellitus with hyperglycemia, without long-term current use of insulin ([facility]) POCT GLYCATED HEMOGLOBIN, TOTAL Routine 03/23/2024 11:46 AM EST Type 2 diabetes mellitus with hyperglycemia, without long-term current use of insulin (CMS/HCC) POCT GLUCOSE Routine 03/23/2024 11:46 AM EST Type 2 diabetes mellitus with hyperglycemia, without long-term current use of insulin (CMS/[facility]) HIV 1/2 ANTIGEN/ANTIBODY, FOURTH GENERATION W/RFL Routine 03/23/2024 10:33 AM EST Annual physical exam Primary hypertension HEPATITIS C AB W/REFL TO HCV RNA, QN, PCR Routine 03/23/2024 10:33 AM EST Annual physical exam Primary hypertension LIPID PANEL, STANDARD Routine 03/23/2024 10:33 AM EST Acquired hypothyroidism Type 2 diabetes mellitus with hyperglycemia, without long-term current use of insulin (CMS/HCC) TSH W/REFLEX TO FT4 Routine 03/23/2024 1 0:33 AM EST Acquired hypothyroidism COMPREHENSIVE METABOLIC PANEL Routine 03/23/2024 10:33 AM EST Type 2 diabetes mellitus with hyperglycemia, without long-term current use of insulin (CMS/HCC) CBC WITH AUTO DIFFERENTIAL Routine 03/23/2024 10:33 AM EST Primary hypertension Type 2 diabetes mellitus with hyperglycemia, without long-term current use of insulin (CMS/HCC) LAB COLOGUARD?? COLON CANCER SCREEN Routine 05/05/2023 10:41 PM EST Screening for colon cancer ALBUMIN, RANDOM URINE W/CREATININE Routine 04/19/2020 9:14 AM EST from Last 3 Months or Most Recently Relevant to Health Maintenance Results * ECG 12 lead (05/27/2024 10:23 AM EST) Katina Bolaños MD - 05/27/2024 10:23 AM EST Heart rate 76 bpm. ??[place] 47 degrees. ??No sign of left atrial enlargement or right atrial enlargement. ??No sign of hypertrophy. ??No ST elevation or depression. ??Q wave in lead III. ??Normal variant EKG us Katina Guevara MD ECG ORDERABLES Final Resul t * POCT Glucose (05/27/2024 9:35 AM EST) Only the most recent of2 resultswithin the time period is included. Glucose Blood, POC 110 60 - 200 mg/dL QC Media Lot # [id number] Lot# Expiration Date [id number] Blood Capillary blood specimen / Unknown 05/27/2024 9:35 AM EST Katina Guevara MD POINT OF CARE TEST ENTER/ED IT ORDERABLES Final Result * (ABNORMAL) POCT HGB A1C (03/23/2024 11:46 AM EST) Pathologist [facility] Hemoglobin A1C 6.4(A) 4.0 - 6.0 % QC Media Lot # [id number] Lot# Expiration Date [id number] Blood 03/23/2024 11:4 6 AM EST Katina Guevara MD POINT OF CARE TEST ENTER/ED IT ORDERABLES Final Result * TSH W/Reflex to FT4 (03/23/2024 10:33 AM EST) [facility] TSH reflex Free T4 1.83 0.32 - 4.0 uIU/mL [facility] Blood Venous blood specimen / Unknown 03/23/2024 10:33 AM EST 03/23/2024 2:13 PM EST Katina Guevara MD LAB BLOOD ORDERABLES Final Result Performing Organization Address City/State/[facility] Co de Phone Number [facility] [address] [place] [phone] * (ABNORMAL) CBC auto differential (03/23/2024 10:33 AM EST) [facility] White Blood Count 8.2 4.8 - 10.8 X10*3/uL [facility] Red Blood Count 4.78 4.60 - 5.80 X10*6/uL [facility] Hemoglobin 14.1 14.0 - 18.0 g/dl [facility] Hematocrit 41.2(L) 42.0 - 52.0 % [facility] Mean Corpuscular Volume 86.2 80.0 - 98.0 fL [facility] Mean Corpuscular Hemoglobin 29.5 27.0 - 33.0 pg [facility] Mean Corpuscular HGB Conc 34.2 31.0 - 36.0 g/dl [facility] Red Cell Distribution Width 12.3 11.0 - 16.0 % [facility] Platelet Count 314 160 - 400 X10*3/uL [facility] Mean Platelet Volume 10.2 9.4 - 12.4 fL [facility] Neutrophils Percent Auto 64.8 45 - 73 % [facility] Imm Gran Pct Auto 0.4 0.0 - 0.4 % [facility] Lymphocytes Percent Auto 23.1 20 - 40 % [facility] Monocytes Percent Auto 7.8 2 - 11 % [facility] Eosinophils Percent Auto 2.8 0 - 4 % [facility] Basophils Percent Auto 1.1 0 - 2 % [facility] NRBC Pct Auto 0.0 0.0 - 0.2 /100WBC [facility] Neutrophils Absolute Auto 5.3 2.0 - 8.3 x10*3/uL [facility] Imm Gran Abs Auto 0.03 0.00 - 0.03 X10*3/uL [facility] Lymphocytes Absolute Auto 1.9 1.2 - 4.9 X10*3/uL [facility] Monocytes Absolute Auto 0.6 0.1 - 1.2 X10*3/uL [facility] Eosinophils Absolute Auto 0.2 0.0 - 0.4 X10*3/uL [facility] Basophils Absolute Auto 0.1 0.0 - 0.2 X10*3/uL [facility] NRBC Abs Auto 0.000 0.0 - 0.012 X10*3/uL [facility] Blood Venous blood specimen / Unknown 03/23/2024 10:33 AM EST 03/23/2024 2:13 PM EST us Katina Guevara MD LAB BLOOD ORDERABLES Final Result [facility] [address] [place] [phone] * Hepatitis C Antibody with Reflex to HCV, RNA, Quantitative, Real-Time PCR (03/23/2024 10:33 AM EST) Hepatitis C Antibody Nonreactive Nonreactive [facility] Comment:Antibodies to HCV no t detected; does not exclude early acuteHCV infection. Blood Venous blood specimen / Unknown 03/23/2024 10:33 AM EST 03/23/2024 2:13 PM EST us Katina Guevara MD LAB BLOOD ORDERABLES Final Result Performing Organization Address [facility]/ZIP Co de Phone Number [facility] [address] [place] [phone] * HIV-1/2 Antigen and Antibodies, Fourth Generation, with Reflexes (03/23/2024 10:33 AM EST) HIV AB/AG Nonreactive Nonreactive [facility] Comment:HIV-1 p24 Ag and/or HIV-1/HIV-2 Ab not detected.A test result that is nonreactive does not exclude thepossibility of exposure to or infection with HIV-1 and/orHIV-2. Nonreactive results in this assay for individualswith prior exposure to HIV-1 and/or HIV-2 may be due toantigen and antibody levels that are below the limit ofdetection of this assay.The [employer] HIV Ag/Ab Combo assay result andsupplemental assay results should be interpreted inconjunction with the patient's clinical presentation,history and other laboratory results. If the results areinconsistent with clinical evidence, additional testing issuggested to confirm the result. Blood Venous blood specimen / Unknown 03/23/2024 10:33 AM EST 03/23/2024 2:13 PM EST us Katina Guevara MD LAB BLOOD ORDERABLES Final Result Performing Organization Address [facility]/ZIP Co de Phone Number [facility] [address] [place] [phone] * (ABNORMAL) Lipid Panel, Standard (03/23/2024 10:33 AM EST) Triglycerides 138 <150 mg/dL [facility] Comment:Desirable Triglyceri de: less than 150 mg/dLBorderline High Triglyceride 150-199 mg/dLHigh Triglyceride: 200-499 mg/dLVery High Triglyceride: greater than or equal to 5OO mg/dL Cholesterol 202(H) <200 mg/dL [facility] Comment:Desirable Cholestero l: less than 200 mg/dLBorderline High Cholesterol: 200-239 mg/dLHigh Cholesterol: greater than 239 mg/dL LDL Cholesterol Calculated 137(H) <100 mg/dL [facility] Comment:Desirable LDL: less than 100 mg/dLNear Optimal/Above Optimal LDL: 110- 129 mg/dLBorderline High LDL: 130-159 mg/dLHigh LDL: 160-189 mg/dLVery High LDL: greater than or equal to 190 mg/dL HDL Cholesterol 38(L) >40 mg/dL [facility] Comment:Desirable HDL: great er than 40 mg/dL Note: This HDL assay may give artificially low results in patients with liver disease. Blood Venous blood specimen / Unknown 03/23/2024 10:33 AM EST 03/23/2024 2:13 PM EST us Katina Guevara MD LAB BLOOD ORDERABLES Final Result [facility] [address] [place] [phone] * (ABNORMAL) Comprehensive Metabolic Panel (03/23/2024 10:33 AM EST) Sodium 140 135 - 145 mmol/L [facility] Potassium 4.0 3.3 - 5.1 mmol/L [facility] Chloride 102 96 - 108 mmol/L [facility] Carbon Dioxide 27 22 - 29 mmol/L [facility] Anion Gap 15 12 - 20 [facility] Urea Nitrogen (BUN) 12 9 - 16 mg/dL [facility] Creatinine, Serum 1.10 0.5 - 1.4 mg/dL [facility] Estimated Glomerular Filt Rate >60 [facility] Comment:Chronic Kidney Disea se: Estimated GFR < 60 mL/min/1.80e0Xfcypk Kidney Disease: Estimated GFR < 15 mL/min/1.73m2 Glucose 138(H) 60 - 115 mg/dL [facility] Calcium 9.4 8.4 - 10.2 mg/dL [facility] Bilirubin, Total 0.7 0.0 - 1.0 mg/dL [facility] Aspartate Amino Transferase 22 5 - 37 U/L [facility] Alanine Aminotransferase 15 0 - 40 U/L [facility] Total Protein 7.1 6.5 - 8.0 g/dL [facility] Albumin Level 4.4 3.5 - 5.0 g/dL [facility] Alkaline Phosphatase 63 39 - 117 U/L [facility] Blood Venous blood specimen / Unknown 03/23/2024 10:33 AM EST 03/23/2024 2:13 PM EST us Katina Guevara MD LAB BLOOD ORDERABLES Final Result [facility] [address] [place] [phone] * Cologuard?? colon cancer screening (05/05/2023 10:41 PM EST) Cologuard Result Negative Negative 05/16/19 24 1:49 AM EST [facility] (CLIA #:[id number]) Comment: NEGATIVE TEST RESULT. A negative Cologuard result indicates a low likelihood that a colorectal cancer (CRC) or advanced adenoma (adenomatous polyps with more advanced pre-malignant features) ??is present. The chance that a person with a negative Cologuard test has a colorectal cancer is less than 1 in 1500 (negative predictive value >99.9%) or has an ??advanced adenoma is less than ??5.3% (negative predictive value 94.7%). These data are based on a prospective cross-sectional study of 10,000 individuals at average risk for colorectal cancer who were screened with both Cologuard and colonoscopy. (Gerson Aguilar al, N Engl J Med 2014;370(14):1286- 1297) The normal value (reference range) for this assay is negative. COLOGUARD RE-SCREENING RECOMMENDATION: Periodic colorectal cancer screening is an important part of preventive healthcare for asymptomatic individuals at average risk for colorectal cancer. ??Following a negative Cologuard result, the [place] [employer] and U.S. Multi-Society Task Force screening guidelines recommend a Cologuard re-screening interval of 3 years. References: [place] [employer] Guideline for Colorectal Cancer Screening: https://www.cancer.org/cancer/mpdja-fvrogv-awllje/ythvuwqlw-xsfeoihvh-xcmjyhy/ac s-rec ommendations.html.; Frank HALL, Ct BELLA, Andie OatesK, Colorectal Cancer Screening: Recommendations for Physicians and Patients from the U.S. Multi-Society Task Force on Colorectal Cancer Screening , Am J Gastroenterology 2017; 112:3872-2017. TEST DESCRIPTION: Composite algorithmic analysis of stool DNA-biomarkers with hemoglobin immunoassay. ?? Quantitative values of individual biomarkers are not reportable and are not associated with individual biomarker result reference ranges. Cologuard is intended for colorectal cancer screening of adults of either sex, 45 years or older, who are at average-risk for colorectal cancer (CRC). Cologuard has been approved for use by the U.S. FDA. The performance of Cologuard was established in a cross sectional study of average-risk adults aged 50-84. Cologuard performance in patients ages 45 to 49 years was estimated by sub-group analysis of near-age groups. Colonoscopies performed for a positive result may find as the most clinically significant lesion: colorectal cancer [4.0%], advanced adenoma (including sessile serrated polyps greater than or equal to 1cm diameter) [20%] or non- advanced adenoma [31%]; or no colorectal neoplasia [45%]. These estimates are derived from a prospective cross-sectional screening study of 10,000 individuals at average risk for colorectal cancer who were screened with both Cologuard and colonoscopy. (Gerson Dalton, N Engl J Med 2014;370(14):5784-1102.) Cologuard may produce a false negative or false positive result (no colorectal cancer or precancerous polyp present at colonoscopy follow up). A negative Cologuard test result does not guarantee the absence of CRC or advanced adenoma (pre-cancer). The current Cologuard screening interval is every 3 years. ([place] [employer] and U.S. Multi-Society Task Force). Cologuard performance data in a 10,000 patient pivotal study using colonoscopy as the reference method can be accessed at the following location: www.[employer]/results. Additional description of the Cologuard test process, warnings and precautions can be found at www.[employer]Calculator[employer].com. Stool specimen (specimen) 05/05/2023 10:41 PM EST 05/07/2023 11:50 AM EST Katina Guevara MD LAB MOLECULAR DIAGNOSTICS O RDERABLES Final Result [facility] (CLIA #:[id number]) [address] [place] [address], * ALBUMIN, RANDOM URINE W/CREATININE (04/19/2020 9:14 AM EST) Microalbumin Urine 1.6 See Note: mg/dL [facility] Comment: Reference Range: ?? Reference Range Not established Microalb/Creat Ratio 24 <30 mcg/mg creat [facility] Comment: ?? The ADA defines abnormalities in albumin excretion as follows: ?? Category ? Result (mcg/mg creatinine) ?? Normal ?<30 Microalbuminuria ? 30-299 ?? Clinical albuminuria ?? > OR = 300 ?? The ADA recommends that at least two of three specimens collected within a 3-6 month period be abnormal before considering a patient to be within a diagnostic category. Creatinine, Urine 68 20 - 320 mg/dL [facility] 04/19/2020 9:14 AM EST Katina Guevara MD LAB URINE ORDERABLES Final Result [facility] [address] from Last 3 Months or Most Recently Relevant to Health Maintenance [place] [address] [address] Care Teams Glued Wood Tester Relationship Specialty Start Date End Date Katnia Guevara MD [address] [place] [id number] PCP - General Internal Medicine 06/28/20
--- OUTSIDE RECORDS SUMMARY | 2024-06-12 15:44 | XMS_ITS | Encounter Summary ---
Author Organization [employer] Address [address] [place] [address] Care Team Providers Care Substation Design Draftsperson Name Role Phone Katina Guevara MD Primary Care Provider [phone] Reason for Referral * Imaging (Routine) - Pending Review Specialty Diagnoses / Procedures Referred By Contac t Referred To Contact Cardiology Diagnoses Primary hypertension Type 2 diabetes mellitus with hyperglycemia, without long-term current use of insulin ([facility]) Procedures Transthoracic Echo (TTE) Complete Katina Guevara MD [address] [place] [address] Phone: tel: fax: [address] Phone: tel: fax: Referral ID Status Reason Start Date Expiration Date Visits Requested Visits Authorized [id number] Pending Review Perform Procedure 05/27/2024 05/27/2025 1 1 Reason for Visit * Reason Comments Hypertension Encounter Details Date Type Department Care Team (Late st Contact Info) Description 05/27/2024 9:00 AM EST Office Visit [facility] [address] [place] [address] Katina Guevara MD [address] [place] [address] Primary hypertension (Primary Dx); Type 2 diabetes mellitus with hyperglycemia, without long-term current use of insulin ([facility]) Social History Tobacco Use Types Packs/Day Years [...] the past 12 months, has t he [employer], gas, oil or water company threatened to [...] AM EDT documented as of this encounter Last Filed Vital Signs Vital Sign Reading [...] Mass Index 27.91 05/27/2024 9:07 AM EST documented in this encounter Progress Notes * Katina Guevara MD - 05/27/2024 9:00 AM EST Subjective Patient ID: Richard Parson is a 48 y.o. male who presents for No chief complaint on file.. Hypertension This is a chronic problem. The problem is uncontrolled. Pertinent negatives include no anxiety, blurred vision, chest pain, headaches, malaise/fatigue, neck pain, orthopnea, palpitations, peripheral edema, PND, shortness of breath or sweats. There are no associated agents to hypertension. Risk factors for coronary artery disease include diabetes mellitus and male gender. Patient with history of hypertension. Has been monitoring his blood pressure at home. Recently started on lisinopril which is well-tolerated. No reported untoward side effect. His blood pressure log from home was reviewed and was still above goal with systolic in the 150s. Patient Active Problem List Diagnosis Hypertensive disorder Hypothyroidism Type 2 diabetes mellitus ([facility]) Current Outpatient Medications on File Prior to Visit Medication Sig Dispense Refill atorvastatin (Lipitor) 20 MG tablet Take 1 tablet (20 mg) by mouth Once per day. 30 tablet 11 Continuous Glucose Parer (FreeStyle Torri 2 [place]) device Scan sensor every 8 hours 1 each 0 Continuous Glucose Sensor (FreeStyle Torri 2 Sensor) [facility] Apply 1 sensor every 14 days 2 each 11 dapagliflozin (Farxiga) 5 MG Take 1 tablet (5 mg) by mouth in the morning. 30 tablet 11 dulaglutide (Trulicity) 1.5 MG/0.5ML solution pen-injector Inject 1.5 mg under the skin 1 (one) time per week. 4 each 11 dulaglutide (Trulicity) 3 MG/0.5ML solution pen-injector Inject 3 mg under the skin 1 (one) time per week. 12 each 3 ergocalciferol (Vitamin D-2) 1.25 MG (75440 UT) capsule 1 capsule a week for 12 weeks levothyroxine (Synthroid, Levoxyl) 50 MCG tablet Take 1 tablet (50 mcg) by mouth before breakfast. 90 tablet 3 lisinopril 10 MG tablet Take 1 tablet (10 mg) by mouth Once per day. 30 tablet 3 metFORMIN (Glucophage) 1000 MG tablet Take 1 tablet (1,000 mg) by mouth every 12 (twelve) hours. 180 tablet 3 metFORMIN (Glucophage) 1000 MG tablet Take 1 tablet (1,000 mg) by mouth 2 times daily. 180 tablet 3 No current facility-administered medications on file prior to visit. No Known Allergies Review of Systems Constitutional: Negative for malaise/fatigue. Eyes: Negative for blurred vision. Respiratory: Negative for shortness of breath. Cardiovascular: Negative for chest pain, palpitations, orthopnea and PND. Musculoskeletal: Negative for neck pain. Neurological: Negative for headaches. Objective Physical Exam Constitutional: General: He is not in acute distress. Appearance: Normal appearance. He is obese. He is not ill-appearing, toxic- appearing or diaphoretic. Cardiovascular: Rate and Rhythm: Normal rate. Pulmonary: Effort: Pulmonary effort is normal. Skin: General: Skin is warm. Neurological: Mental Status: He is alert. Assessment/Plan Diagnoses and all orders for this visit: Primary hypertension Comments: Uncontrolled Continue with lisinopril. Start hydrochlorothiazide 12.5 mg once a day DASH diet Orders: - hydroCHLOROthiazide 12.5 MG tablet; Take 1 tablet (12.5 mg) by mouth Once per day. - Basic Metabolic Panel; Future - Transthoracic Echo (TTE) Complete; Future - ECG 12 lead Type 2 diabetes mellitus with hyperglycemia, without long-term current use of insulin ([facility]) Comments: Stable No change. Orders: - POCT Glucose - Basic Metabolic Panel; Future - Transthoracic Echo (TTE) Complete; Future documented in this encounter Plan of Treatment Upcoming Encounters Date Type Department Care Team (Late st Contact Info) Description 06/18/2024 9:00 AM EST Telemedicine [facility] [address] [place] [address] Katina Guevara MD [address] [place] [address] Scheduled Orders Name Type Priority Associated Diagnoses Order Schedule Basic Metabolic Panel Lab Routine Primary hypertension Type 2 diabetes mellitus with hyperglycemia, without long-term current use of insulin ([facility]) Expected: 05/27/2024 (Approximate), Expires: 05/27/2025 Transthoracic Echo (TTE) Complete Echocardiography Routine Primary hypertension Type 2 diabetes mellitus with hyperglycemia, without long-term current use of insulin ([facility]) Expected: 05/27/2024 (Approximate), Expires: 05/27/2026 documented as of this encounter Procedures Procedure Name Priority Date/Time Associated Diagnosis Comments ECG 12-LEAD Routine 05/27/2024 10:23 AM EST Primary hypertension POCT GLUCOSE Routine 05/27/2024 9:35 AM EST Type 2 diabetes mellitus with hyperglycemia, without long-term current use of insulin ([facility]) documented in this encounter Results * ECG 12 lead (05/27/2024 10:23 AM EST) Narrative Katina Guevara MD - 05/27/2024 10:23 AM EST Heart rate 76 bpm. ??[place] 47 degrees. ??No sign of left atrial enlargement or right atrial enlargement. ??No sign of hypertrophy. ??No ST elevation or depression. ??Q wave in lead III. ??Normal variant EKG us Katina Guevara MD ECG ORDERABLES Final Resul t * POCT Glucose (05/27/2024 9:35 AM EST) Glucose Blood, POC 110 60 - 200 mg/dL QC Media Lot # [id number] Lot# Expiration Date 48, Blood Capillary blood specimen / Unknown 05/27/2024 9:35 AM EST Result [facility] Katina Guevara MD POINT OF CARE TEST ENTER/ED IT ORDERABLES Final Result documented in this encounter Visit Diagnoses Diagnosis Primary hypertension- Primary Unspecified essential hypertension Type 2 diabetes mellitus with hyperglycemia, without long-term current use of insulin ([facility]) documented in this encounter Additional Health Concerns Assessment Noted Time PHQ-9 Depression Total Score: 0 03/23/20 10:15 AM EST documented as of this encounter Care Teams Substation Design Draftsperson Relationship Specialty Start Date End Date Katina Guevara MD [address] [place] [address] PCP - General Internal Medicine 06/28/20 documented as of this encounter
--- OUTSIDE RECORDS SUMMARY | 2024-06-12 15:44 | XMS_ITS | Encounter Summary ---
Author Organization [employer] Address [address] [facility] 7 [place] [address] Care Team Providers Care Estate Conservator Name Role Phone Katina Guevara MD Primary Care Provider [phone] Encounter Details Date Type Department Care Team (Latest Contact Info) Description 05/27/2024 Travel Social History Tobacco Use Types Packs/Day Years [...] is your housing situation today? I have chadcarmencita bowen 03/12/[address] you [...] Info) Description 06/18/2024 9:00 AM EST Telemedicine [facility] MED & PEDS [address] [place] [address] Katina Guevara MD [address] [place] [address] documented as of this encounter Visit Diagnoses Not on filedocumented in this encounter Additional Health Concerns Assessment Noted Time PHQ-9 Depression Total Score: 0 03/23/20 24 10:15 AM EST documented as of this encounter Care Teams Estate Conservator Relationship Specialty Start Date End Date Katina Guevara MD [address] [place] [address] PCP - General Internal Medicine 06/28/20 documented as of this encounter
[2024-06-12 18:08] LABS: Anion Gap 12 (12-20); Blood Urea Nitrogen 16 mg/dL (9-16); Calcium 9.5 mg/dL (8.4-10.2); Carbon Dioxide 28 mmol/L (22-29); Chloride 105 mmol/L (96-108); Estimated Glomerular Filt Rate > 60; Glucose Random 125 mg/dL (60-115); Potassium 3.8 mmol/L (3.3-5.1); Sodium 141 mmol/L (135-145)
== END 2024-06-12 15:43 | disposition home or self-care (01) ==
LOC: HO.CHCLDS 15:42
PROVIDERS: Visit Provider Internal Medicine
DX: E11.65 Type 2 diabetes mellitus with hyperglycemia (principal); I10 Essential (primary) hypertension
CPT/HCPCS: 36415; 80048

== ENCOUNTER 2024-07-31 14:36 | Outpatient (AMB) | payer OTHER, SELFPAY ==
--- NOTE | 2024-07-31 14:42 | A.OFFVIS_ITS ---
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 He has a long history of diabetes going back almost 20 years. With regard to hypertension, he has been on meds for the last few months but he could have had high blood pressure for a longer time. His weight was also much higher in the past at about 250 lb or so but over time, he has lost weight. He did not have any clear-cut symptoms but had an echocardiogram that had reported inferoseptal/basal inferior hypokinesis. Patient himself does not have any exertional angina or shortness of breath or in fact any other clear-cut symptoms. He states that he was actually hiking in [place] recently and felt fine. [facility] Medical History (Updated 07/31/24 @ 16:50 by Clement Gerber MD) Hyperlipidemia, unspecified Primary hypertension Type 2 diabetes mellitus with unspecified complications Family History (Updated 07/31/24 @ 14:50 by Evelyn Loo CMA) Paternal Grandfather Cancer Paternal Uncle S/P vascular bypass Social History (Updated 07/31/24 @ 14:50 by Evelyn Loo CMA) Household Members: Spouse Alcohol intake: never Patient Tobacco Use Status: Never used Tobacco Review of Systems Const Denies chills, Denies fatigue, Denies fever(s), Denies frequent falls, Denies weakness, Denies weight gain and Denies weight loss ENT Denies dizziness Card Denies chest pain, Denies leg edema, Denies lightheadedness, Denies palpitations, Denies dyspnea, Denies dyspnea on exertion and Denies orthopnea Resp Denies cough, Denies dyspnea and Denies dyspnea on exertion GI Denies bloating and Denies change in bowel habits Musc Denies muscle weakness, Denies numbness and Denies tingling Neuro Denies dizziness, Denies frequent falls, Denies numbness, Denies tingling and Denies weakness Endo Denies fatigue and Denies palpitations Physical Exam Vital Signs: Last Vital Signs Pulse 79 07/31/24 14:45 BP 150/80 H 07/31/24 14:45 BMI result Body Mass Index 29.1 Const General: comfortable and no acute distress Orientation/consciousness: patient oriented x3 HEENT Other: Unremarkable Head: Yes normal to inspection Neck Neck: Yes normal visual inspection Chest Chest palpation & inspection: normal inspection of the chest Resp Auscultation: clear to auscultation bilaterally Cardio Palpation: normal PMI Heart sounds: S1 normal heart sound present, S2 normal heart sound present, no gallops, no murmurs and no rubs GI Palpation (GI): Soft to palpation Back/Spine/Pelvis Other: unremarkable Skin General skin exam: no rashes or lesions noted Neuro General: patient oriented x3 Extrem General: Yes normal to inspection Psych Mental Status: mental status grossly normal Office Procedures EKG Details: EKG with underlying sinus rhythm at 79/Min; cannot exclude old inferior infarct but could be from body habitus. Nonspecific changes in the inferior/anterolateral leads; [place]. [address]-[id number], Complete Assessment & Plan Assessment & Plan (1) Regional wall motion abnormality of heart: Code(s): R93.1 - Abnormal findings on diagnostic imaging of heart and coronary circulation Category: Medical (2) Type 2 diabetes mellitus with unspecified complications: Code(s): E11.8 - Type 2 diabetes mellitus with unspecified complications Category: Medical (3) Primary hypertension: Code(s): I10 - Essential (primary) hypertension Category: Medical Plan In the echocardiogram, reported low normal LVEF with inferoseptal/basal inferior hypokinesis. Reviewed the echocardiogram images and the regional wall motion abnormality is not truly convincing. Possible artifactual. With regard to LVEF, probably about 55%. Echocardiographic findings discussed. He has no overt symptoms but clearly has risk factors including overweight, history of diabetes/hypertension/dyslipidemia. Hence we will plan on coronary CTA for further evaluation. Discussed with significant other and they are in agreement. We can see him back in follow-up after the testing. In the interim, they will contact us with any ongoing concerns other questions. Orders: Orders Basic Metabolic Panel Today E11.8 - Type 2 diabetes mellitus with unspecified complications CT Cardiac Coronary Angio Today I25.10 - Atherosclerotic heart disease of ione coronary artery without angina pectoris Coding Level of Care Code New Pt Level 4 (45905) Diagnoses Regional wall motion abnormality of heart R93.1 Type 2 diabetes mellitus with unspecified complications E11.8 Primary hypertension I10 CPT Codes EKG - CPT: 16282-[id number], Complete ([id number])
[2024-07-31 14:45] VITALS: BP 150/80; PULSE 79; BMI 29.1
--- OUTSIDE RECORDS SUMMARY | 2024-07-31 16:11 | XMS_ITS | Encounter Summary ---
Author Organization [employer] Address [address] [place] [address] Care Team Providers Care Home Visitor Home Base Head Start Name Role Phone Katina Guevara MD Primary Care Provider [phone] Encounter Details Date Type Department Care Team (Late Contact Info) Description 11/27/2023 Orders Only [facility] MED & PEDS [address] [place] [address] Katina Guevara MD [address] [place] [address] Social History Tobacco Use Types Packs/Day Years [...] Department Care Team (Late Contact Info) Description 09/28/2024 4:00 PM EDT Office Visit [facility]ED[facility] [address] [place] [address] Katina Guevara MD [address] [place] [address] documented as of this encounter Visit Diagnoses Not on filedocumented in this encounter Care Teams Home Visitor Home Base Head Start Relationship Specialty Start Date End Date Katina Guevara MD [address] [place] [address] PCP - General Internal Medicine 06/28/20 documented as of this encounter
--- OUTSIDE RECORDS SUMMARY | 2024-07-31 16:11 | XMS_ITS | Clinical Summary ---
Author Organization [facility] Address [address] [place] [address] Care Team Providers Care Solar Sales Estimator Name Role Phone Dennis Abraham Primary Care Provider [phone] Allergies No known active allergies Medications Medication [...] 2023-2 5 season) 2023 Pneumococcal Vaccine: Pediat arabella (0-5 Years) and At-Risk Patients (6 to 49 Years) Aged Out No longer eligible b ased on patient's age to complete this topic Care Teams Solar Sales Estimator Relationship Specialty Start Date End Date Dennis Abraham [address] [place] [address] PCP - General 08/18/18
--- OUTSIDE RECORDS SUMMARY | 2024-07-31 16:11 | XMS_ITS | Encounter Summary ---
Author Organization [employer] Address [address] [address] Care Team Providers Care Events Director Name Role Phone Katina Guevara MD Primary Care Provider [phone] Encounter Details Date Type Department Care Team ([facility] st Contact Info) Description 05/27/2024 Orders Only [facility] PEDS [address] [place], [place] [phone] Katina Guevara MD [address] [place] [address] Social History Tobacco Use Types Packs/Day Years [...] Care Team (Late st Contact Info) Description 09/28/2024 4:00 PM EDT Office Visit [facility] MED & PEDS [address] [place] [address] Katina Guevara MD [address] [place] [address] documented as of this encounter Visit Diagnoses Not on filedocumented in this encounter Additional Health Concerns Assessment Noted Time PHQ-9 Depression Total Score: 0 03/23/20 24 10:15 AM EST documented as of this encounter Care Teams Events Director Relationship Specialty Start Date End Date Katina Guevara MD [address] [place] [address] PCP - General Internal Medicine 06/28/20 documented as of this encounter
--- OUTSIDE RECORDS SUMMARY | 2024-07-31 16:11 | XMS_ITS | Encounter Summary ---
Author Organization [employer] Address [address] [place] [address] Care Team Providers Care Aquaculture Worker Name Role Phone Katina Guevara MD Primary Care Provider [phone] Encounter Details Date Type Department Care Team (Late Contact Info) Description 03/19/2023 Orders Only [facility] MED & PEDS [address] [place] [address] Katina Guevara MD [address] [place] [address] Social History Tobacco Use Types Packs/Day Years [...] Description 09/28/2024 4:00 PM EDT Office Visit [facility] MED [facility] PEDS [address] [place] [address] Katina Guevara MD [address] [place] [address] documented as of this encounter Visit Diagnoses Not on filedocumented in this encounter Care Teams Aquaculture Worker Relationship Specialty Start Date End Date Katina Guevara MD [address] [place] [address] PCP - General Internal Medicine 06/28/20 documented as of this encounter
--- OUTSIDE RECORDS SUMMARY | 2024-07-31 16:11 | XMS_ITS | Encounter Summary ---
Author Organization [employer] Address [address] [address] Care Team Providers Care Manager Language Name Role Phone Katina Guevara MD Primary Care Provider [phone] Encounter Details Date Type Department Care Team (Latest Contact Info) Description 03/23/2024 Orders Only [facility] MED [facility] PEDS [address] [place], [place] [phone] Katina Guevara MD [address] [place] [address] Hypercholesterolemia (Primary Dx); Primary hypertension Social History [...] [facility] [address] [place] [address] Katina Guevara MD [address] [place] [address] documented as of this encounter Visit Diagnoses Diagnosis Hypercholesterolemia- Primary Pure hypercholesterolemia Primary hypertension Unspecified essential hypertension documented in this encounter Additional Health Concerns Assessment Noted Time PHQ-9 Depression Total Score: 0 03/23/20 24 10:15 AM EST documented as of this encounter Care Teams Manager Language Relationship Specialty Start Date End Date Katina Guevara MD [address] [place] [address] PCP - General Internal Medicine 06/28/20 documented as of this encounter
--- OUTSIDE RECORDS SUMMARY | 2024-07-31 16:11 | XMS_ITS | Encounter Summary ---
Author Organization [employer] Address [address] [address] Care Team Providers Care Site Reliability Engineer Name Role Phone Katina Guevara MD Primary Care Provider [phone] Encounter Details Date Type Department Care Team ([facility] st Contact Info) Description 04/17/2024 Orders Only [facility] MED [facility] PEDS [address] [place], [place] [phone] Katina Guevara MD [address] [place] [address] Primary hypertension Social History Tobacco Use Types [...] Description 09/28/2024 4:00 PM EDT Office Visit [facility] MED & PEDS [address] [place] [address] Katina Guevara MD [address] [place] [address] documented as of this encounter Visit Diagnoses Diagnosis Primary hypertension Unspecified essential hypertension documented in this encounter Additional Health Concerns Assessment Noted Time PHQ-9 Depression Total Score: 0 03/23/20 24 10:15 AM EST documented as of this encounter Care Teams Site Reliability Engineer Relationship Specialty Start Date End Date Katina Guevara MD [address] [place] [address] PCP - General Internal Medicine 06/28/20 documented as of this encounter
--- OUTSIDE RECORDS SUMMARY | 2024-07-31 16:11 | XMS_ITS | Encounter Summary ---
Author Organization [employer] Address [address] [place] [address] Care Team Providers Care Head Scorer Name Role Phone Katina Guevara MD Primary Care Provider [phone] Reason for Visit * Reason Comments Med Change Request Encounter Details Date Type Department Care Team ([facility] Contact Info) Description 09/19/2023 Refill [facility] MED & PEDS [address] [place] [address] Katina Guevara MD [address] [place] [address] Type 2 diabetes mellitus with hyperglycemia, without long-term current use of insulin ([facility]) Social History Tobacco Use Types Packs/Day Years [...] Upcoming Encounters Date Type Department Care Team ([facility] Contact Info) Description 09/28/2024 4:00 PM EDT Office Visit [facility] MED & PEDS [address] [place] [address] Katina Guevara MD [address] [place] [address] documented as of this encounter Visit Diagnoses Diagnosis Type 2 diabetes mellitus with hyperglycemia, without long-term current use of insulin ([facility]) documented in this encounter Care Teams Head Scorer Relationship Specialty Start Date End Date Katina Guevara MD [address] [place] [address] PCP - General Internal Medicine 06/28/20 documented as of this encounter
--- OUTSIDE RECORDS SUMMARY | 2024-07-31 16:11 | XMS_ITS ---
Author Name [employer] Organization Unknown Care Team Organization Name Specialty Phone Email Start Date End Da te [facility] 02/28/2022 12/16/2023
--- OUTSIDE RECORDS SUMMARY | 2024-07-31 16:11 | XMS_ITS | Encounter Summary ---
Author Organization [employer] Address [address] [place] [address] Care Team Providers Care Director Of Guidance Name Role Phone Katina Guevara MD Primary Care Provider [phone] Encounter Details Date Type Department Care Team (Late Contact Info) Description 07/24/2023 Orders Only [facility] MED & PEDS [address] [place] [address] Katina Guevara MD [address] [place] [address] Type 2 diabetes mellitus with hyperglycemia, without long-term current use of insulin ([facility]) (Primary Dx); Acquired hypothyroidism Social History Tobacco [...] 4:00 PM EDT Office Visit [facility] MED & PEDS [address] [place] [address] Katina Guevara MD [address] [place] [address] documented as of this encounter Visit Diagnoses Diagnosis Type 2 diabetes mellitus with hyperglycemia, without long-term current use of insulin ([facility])- Primary Acquired hypothyroidism Unspecified hypothyroidism documented in this encounter Care Teams Director Of Guidance Relationship Specialty Start Date End Date Katina Guevara MD [address] [place] [address] PCP - General Internal Medicine 06/28/20 documented as of this encounter
--- OUTSIDE RECORDS SUMMARY | 2024-07-31 16:11 | XMS_ITS | Encounter Summary ---
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); Primary hypertension; Acquired hypothyroidism Social History Tobacco Use Types [...] Upcoming Encounters Date Type Department Care Team ([facility] st Contact Info) Description 09/28/2024 4:00 PM EDT Office Visit [facility] [address] [place] [address] Katina Guevara MD [address] [place] [address] documented as of this encounter Visit Diagnoses Diagnosis 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
--- OUTSIDE RECORDS SUMMARY | 2024-07-31 16:11 | XMS_ITS | Encounter Summary ---
Author Organization [employer] Address 75 [facility] 7t [place] [address] Care Team Providers Care Tender Coordinator Name Role Phone Katina Guevara MD Primary Care Provider [phone] Reason for Referral * Consultation (Routine) - Authorized Specialty Diagnoses / Procedures Referred By Alex garrido Referred To Contact Cardiology Diagnoses Primary hypertension Regional wall motion abnormality of heart Katina Guevara MD [address] [place] [address] Phone: tel: fax: Jersey Ariza MD [address] [place] [address] 3rd [place] [address] Phone: tel: Referral ID Status Reason Start Date Expiration Date Visits Requested Visits Authorized [id number] Authorized Specialty Services Required 06/11/2024 06/11/2025 1 1 Encounter Details Date Type Department Care Team (Late st Contact Info) Description 06/11/2024 Orders Only [facility] MED & PEDS [address] [place] [address] Katina Guevara MD [address] [place] [address] Primary hypertension (Primary Dx); Regional wall motion [...] Description 09/28/2024 4:00 PM EDT Office Visit [facility] [address] [place] [address] Katina Guevara MD [address] [place] [address] Scheduled Referrals Name Type Priority Associated Diagnoses [...] documented as of this encounter Care Teams Tender Coordinator Relationship Specialty Start Date End Date Katina Guevara MD [address] [place] [address] PCP - General Internal Medicine 06/28/20 documented as of this encounter
--- OUTSIDE RECORDS SUMMARY | 2024-07-31 16:11 | XMS_ITS | Encounter Summary ---
Author Organization [employer] Address [address] [place] [address] Care Team Providers Care Sprinkler Fitter Apprentice Name Role Phone Katina Guevara MD Primary Care Provider [phone] Encounter Details Date Type Department Care Team (Late Contact Info) Description 08/22/2023 Orders Only [facility] MED & PEDS [address] [place] [address] Katina Guevara MD [address] [place] [address] Type 2 diabetes mellitus with hyperglycemia, without long-term current use of insulin ([facility]) (Primary Dx) Social History Tobacco Use Types [...] Description 09/28/2024 4:00 PM EDT Office Visit [facility] MED & PEDS [address] [place] [address] Katina Guevara MD [address] [place], [place] [phone] documented as of this encounter Visit Diagnoses Diagnosis Type 2 diabetes mellitus with hyperglycemia, without long-term current use of insulin ([facility])- Primary documented in this encounter Care Teams Sprinkler Fitter Apprentice Relationship Specialty Start Date End Date Katina Guevara MD [address] [place] [address] PCP - General Internal Medicine 06/28/20 documented as of this encounter
--- OUTSIDE RECORDS SUMMARY | 2024-07-31 16:11 | XMS_ITS | Clinical Summary ---
Author Organization [facility] Address [address] [place] [address] Care Team Providers Care Kelly Machine Operator Name Role Phone Unavailable Primary Care Provider [...]
--- OUTSIDE RECORDS SUMMARY | 2024-07-31 16:11 | XMS_ITS | Clinical Summary ---
Author Organization [employer] Address [address] [place] [address] Care Team Providers Care Occupational Health And Safety Adviser Name Role Phone Katina Guevara MD Primary Care Provider [phone] Allergies No known active allergies Medications ergocalciferol (Vitamin D-2) 1.25 MG (90998 UT) capsule 1 capsule a week for 12 weeks 02/25/20 21 Active dapagliflozin (Farxiga) 5 MGIndications:Typ e 2 diabetes mellitus with hyperglycemia, without long-term current use of insulin (CMS/HCC) Take 1 tablet (5 mg) by mouth in the morning. 30 tablet 11 05/03/19 24 Active metFORMIN (Glucophage) 1000 MG tabletIndications :Type 2 diabetes mellitus with hyperglycemia, without long-term current use of insulin (CMS/HCC) Take 1 tablet (1,000 mg) by mouth every 12 (twelve) hours. 180 tablet 3 07/24/19 24 Active dulaglutide (Trulicity) 3 MG/0.5ML solution pen-injectorIndic ations:Type 2 diabetes mellitus with hyperglycemia, without long-term current use of insulin (CMS/HCC) Inject 3 mg under the skin 1 (one) time per week. 12 each 3 08/22/19 24 Active dulaglutide (Trulicity) 1.5 MG/0.5ML solution pen-injectorIndic ations:Type 2 diabetes mellitus with diabetic dermatitis (CMS/HCC) Inject 1.5 mg under the skin 1 (one) time per week. 4 each 11 10/25/19 24 Active Continuous Glucose Glue Specialty Supervisor (FreeStyle Torri 2 [place]) deviceIndications :Type 2 diabetes mellitus with hyperglycemia, without long-term current use of insulin ([facility]) Scan sensor every 8 hours 1 each 03/23/20 Active Continuous Glucose Sensor (FreeStyle Torri 2 Sensor) miscIndications:T ype 2 diabetes mellitus with hyperglycemia, without long-term current use of insulin ([facility]) Apply 1 sensor every 14 days 2 each 03/23/20 Active atorvastatin (Lipitor) 20 MG tabletIndications :Hypercholesterol emia Take 1 tablet (20 mg) by mouth Once per day. 30 tablet 11 03/23/20 24 025 Active hydroCHLOROthiazi de 12.5 MG tabletIndications :Primary hypertension Take 1 tablet (12.5 mg) by mouth Once per day. 30 tablet 05/27/19 25 026 Active metFORMIN (Glucophage) 1000 MG tabletIndications :Type 2 diabetes mellitus with diabetic dermatitis ([facility]) TAKE 1 TABLET(1000 MG) BY MOUTH TWICE DAILY 180 tablet 3 07/29/19 25 Active lisinopril 10 MG tabletIndications :Primary hypertension TAKE 1 TABLET(10 MG) BY MOUTH DAILY 30 tablet 3 07/29/19 25 Active levothyroxine (Synthroid, Levoxyl) 50 MCG tabletIndications :Acquired hypothyroidism TAKE 1 TABLET(50 MCG) BY MOUTH BEFORE BREAKFAST 90 tablet 3 07/29/19 25 Active levothyroxine (Synthroid, Levoxyl) 50 MCG tabletIndications :Acquired hypothyroidism Take 1 tablet (50 mcg) by mouth before breakfast. 90 tablet 3 10/25/19 24 025 Discontinued metFORMIN (Glucophage) 1000 MG tabletIndications :Type 2 diabetes mellitus with diabetic dermatitis ([facility]) Take 1 tablet (1,000 mg) by mouth 2 times daily. 180 tablet 3 10/25/19 24 025 Discontinued lisinopril 10 MG tabletIndications :Primary hypertension Take 1 tablet (10 mg) by mouth Once per day. 30 tablet 3 04/17/20 24 025 Discontinued Active Problems Problem Noted Date Diagnosed Date Hypothyroidism 04/04/2023 04/04/2023 Type 2 diabetes mellitus 04/04/2023 023 Hypertensive disorder 10/03/2021 04/04/2023 Encounters Date Type Department Care Team Description 07/28/2024 Refill [facility] [address] [place] [address] Katina Guevara MD Type 2 diabetes mellitus with diabetic dermatitis ([facility]); Primary hypertension; Acquired hypothyroidism 07/02/2024 Telephone [facility] [address] [facility] [place] [address] Katina Guevara MD 06/18/2024 9:00 AM EST Telemedicine [facility] MED & PEDS 505 [facility] [place] [address] Katina Guevara MD Primary hypertension (Primary Dx) 06/18/2024 Travel 06/17/2024 Telephone [facility] [address] [facility] [place] [address] Katina Floyd MD chart prep 06/11/2024 Orders Only [facility] [address] [facility] [place] [address] Katina Guevara MD Primary hypertension (Primary Dx); Regional wall motion abnormality of heart 05/27/2024 9:00 AM EST Office Visit [facility] [address] [facility] [place] [address] Katina Guevara MD Primary hypertension (Primary Dx); Type 2 diabetes mellitus with hyperglycemia, without long-term current use of insulin ([facility]) 05/27/2024 Orders Only [facility] [address] [facility] [place] [address] Katina Guevara MD 05/27/2024 Travel from Last 3 Months Immunizations Name Administration [...] 09/28/2024 4:00 PM EDT Office Visit [facility] P[facility] [address] [place] [address] Katina Guevara MD [address] [place] [address] Health Maintenance Due Date Last Done Comments CT Colonography 1975 Colonoscopy 1975 FIT 1975 FOBT 1975 Sigmoidoscopy 1975 Eye Exam 07/21/1985 Family Planning (PISQ) 07/21/1990 Hepatitis B Vaccines (1 of 3 - 19+ 3-dose series) 07/21/1994 Diabetes: Urine Protein Screening 04/19/2021 04/19/2020 Diabetes: Hemoglobin A1C 09/20/2024 03/23/2024, 03/30 SDOH Screening 03/12/2025 03/12/2024 Alcohol/Substance Use Screening 03/23/2025 03/23/2024 Depression Screening 03/23/2025 03/23/2024, 03/23/20 Diabetes: Foot Exam 03/23/2025 03/23/2024, 04/04/2023, 04/04/2023, Additional history exists Lipid Panel 03/23/2025 03/23/2024, 04/19/2020 Tobacco Screening 06/18/2025 06/18/2024 Zoster Vaccines (1 of 2) 07/21/2025 Colorectal [...] Procedure Name Priority Date/Time Associated Diagnosis Comments BASIC METABOLIC PANEL Routine 06/12/2024 3:43 PM EST Primary hypertension Type 2 diabetes mellitus with hyperglycemia, without long-term current use of insulin (CMS/HCC) ECG 12-LEAD Routine 05/27/2024 10:23 AM EST Primary hypertension POCT GLUCOSE Routine 05/27/2024 9:35 AM EST Type 2 diabetes mellitus with hyperglycemia, without long-term current use of insulin (CMS/HCC) POCT GLYCATED HEMOGLOBIN, TOTAL Routine 03/23/2024 11:46 AM EST Type 2 diabetes mellitus with hyperglycemia, without long-term current use of insulin (CMS/HCC) HEPATITIS C AB W/REFL TO HCV RNA, QN, PCR Routine 03/23/2024 10:33 AM EST Annual physical exam Primary hypertension HIV 1/2 ANTIGEN/ANTIBODY, FOURTH GENERATION W/RFL Routine 03/23/2024 10:33 AM EST Annual physical exam Primary hypertension LIPID PANEL, STANDARD Routine 03/23/2024 10:33 AM EST Acquired hypothyroidism Type 2 diabetes mellitus with hyperglycemia, without long-term current use of insulin ([facility]) LAB COLOGUARD?? COLON CANCER SCREEN Routine 05/05/2023 10:41 PM EST Screening for colon cancer ALBUMIN, RANDOM URINE W/CREATININE Routine 04/19/2020 9:14 AM EST from Last 3 Months or Most Recently Relevant to Health Maintenance Results * (ABNORMAL) Basic Metabolic Panel (06/12/2024 3:43 PM EST) Sodium 141 135 - 145 mmol/L [facility] Potassium 3.8 3.3 - 5.1 mmol/L [facility] Chloride 105 96 - 108 mmol/L [facility] Carbon Dioxide 28 22 - 29 mmol/L [facility] Anion Gap 12 12 - 20 [facility] Urea Nitrogen (BUN) 16 9 - 16 mg/dL [facility] Creatinine, Serum 1.03 0.5 - 1.4 mg/dL [facility] Estimated Glomerular Filt Rate >60 [facility] Comment:Chronic Kidney Disea se: Estimated GFR < 60 mL/min/1.88r5Ordoao Kidney Disease: Estimated GFR < 15 mL/min/1.73m2 Glucose 125(H) 60 - 115 mg/dL [facility] Calcium 9.5 8.4 - 10.2 mg/dL [facility] Blood Venous blood specimen / Unknown 06/12/2024 3:43 PM EST 06/12/2024 5:49 PM EST us Katina Guevara MD LAB BLOOD ORDERABLES Final Result [facility] [address] [place] [address] [phone] * ECG 12 lead (05/27/2024 10:23 AM EST) Katina Bolaños MD - 05/27/2024 10:23 AM EST Heart rate 76 bpm. ??Anthon 47 degrees. ??No sign of left atrial enlargement or right atrial enlargement. ??No sign of hypertrophy. ??No ST elevation or depression. ??Q wave in lead III. ??Normal variant EKG Katina Guevara MD ECG ORDERABLES Final Resul t * POCT Glucose (05/27/2024 9:35 AM EST) Glucose Blood, POC 110 60 - 200 mg/dL [employer] Media Lot # [id number] Lot# Expiration Date [id number] Blood Capillary blood specimen / Unknown 05/27/2024 9:35 AM EST Katina Guevara MD POINT OF CARE TEST ENTER/ED IT ORDERABLES Final Result * (ABNORMAL) POCT HGB A1C (03/23/2024 11:46 AM EST) Hemoglobin A1C 6.4(A) 4.0 - 6.0 % QC Media Lot # [id number] Lot# Expiration Date [id number] Blood 03/23/2024 11:4 6 AM EST Katina Guevara MD POINT OF CARE TEST ENTER/ED IT ORDERABLES Final Result * Hepatitis C Antibody with Reflex to HCV, RNA, Quantitative, Real-Time PCR (03/23/2024 10:33 AM EST) Pathologist [facility] [place] Hepatitis C Antibody Nonreactive Nonreactive [facility] Comment:Antibodies to HCV no t detected; does not exclude early acuteHCV infection. Blood Venous blood specimen / Unknown 03/23/2024 10:33 AM EST 03/23/2024 2:13 PM EST Katina Guevara MD LAB BLOOD ORDERABLES Final Result [facility] [address] [place] [address] [phone] * HIV-1/2 Antigen and Antibodies, Fourth Generation, with Reflexes (03/23/2024 10:33 AM EST) HIV AB/AG Nonreactive Nonreactive [facility] Comment:HIV-1 p24 Ag and/or HIV-1/HIV-2 Ab not detected.A test result that is nonreactive does not exclude thepossibility of exposure to or infection with HIV-1 and/orHIV-2. Nonreactive results in this assay for individualswith prior exposure to HIV-1 and/or HIV-2 may be due toantigen and antibody levels that are below the limit ofdetection of this assay.The [employer] HIV Ag/Ab Combo assay result andsupplemental assay results should be interpreted inconjunction with the patient's clinical presentation,history and other laboratory results. If the results areinconsistent with clinical evidence, additional testing issuggested to confirm the result. Blood Venous blood specimen / Unknown 03/23/2024 10:33 AM EST 03/23/2024 2:13 PM EST us Katina Guevara MD LAB BLOOD ORDERABLES Final Result Performing Organization Address [facility]/ZIP Co de Phone Number [facility] [address] [place] [address] [phone] * (ABNORMAL) Lipid Panel, Standard (03/23/2024 10:33 AM EST) Triglycerides 138 <150 mg/dL [facility] Comment:Desirable Triglyceri de: less than 150 mg/dLBorderline High Triglyceride 150-199 mg/dLHigh Triglyceride: 200-499 mg/dLVery High Triglyceride: greater than or equal to 5OO mg/dL Cholesterol 202(H) <200 mg/dL [facility] Comment:Desirable Cholestero l: less than 200 mg/dLBorderline High Cholesterol: 200-239 mg/dLHigh Cholesterol: greater than 239 mg/dL LDL Cholesterol Calculated 137(H) <100 mg/dL [facility] Comment:Desirable LDL: less than 100 mg/dLNear Optimal/Above Optimal LDL: 110- 129 mg/dLBorderline High LDL: 130-159 mg/dLHigh LDL: 160-189 mg/dLVery High LDL: greater than or equal to 190 mg/dL HDL Cholesterol 38(L) >40 mg/dL [facility] Comment:Desirable HDL: great er than 40 mg/dL Note: This HDL assay may give artificially low results in patients with liver disease. Blood Venous blood specimen / Unknown 03/23/2024 10:33 AM EST 03/23/2024 2:13 PM EST us Katina Guevara MD LAB BLOOD ORDERABLES Final Result [facility] [address] [place] [phone] * Cologuard?? colon cancer screening (05/05/2023 10:41 PM EST) Cologuard Result Negative Negative 05/16/19 24 1:49 AM EST [employer] (CLIA #:[id number]) Comment: NEGATIVE TEST RESULT. A negative Cologuard [...] colonoscopy. (Gerson Dalton, N Engl J Med 2014;370(14):1286- 1297) The normal value (reference range) for this assay is negative. COLOGUARD RE-SCREENING RECOMMENDATION: Periodic colorectal cancer screening is an important part of preventive healthcare for asymptomatic individuals at average risk for colorectal cancer. ??Following a negative Cologuard result, the [place] Cancer Society and U.S. Multi-Society Task Force screening guidelines recommend a Cologuard re-screening interval of 3 years. References: [place] Cancer Society Guideline for Colorectal Cancer Screening: https://www.cancer.org/cancer/bafqd-oamkse-fdmxoh/bhkhcjoye-uqhcxmwoh-jnjgivx/ac s-rec ommendations.html.; Frank DK, Ct BELLA, Andie OatesK, Colorectal Cancer Screening: Recommendations for Physicians and Patients from the U.S. Multi-Society Task Force on Colorectal Cancer Screening , Am J Gastroenterology 2017; 112:5935-8550. TEST DESCRIPTION: Composite algorithmic analysis of stool [...] (Gerson Aguilar al, N Engl J Med 2014;370(14):8711-8639.) Cologuard may produce a false negative or false positive result (no colorectal cancer or precancerous polyp present at colonoscopy follow up). A negative Cologuard test result does not guarantee the absence of CRC or advanced adenoma (pre-cancer). The current Cologuard screening interval is every 3 years. ([place] Cancer Society and U.S. Multi-Society Task Force). Cologuard performance data in a 10,000 patient pivotal study using colonoscopy as the reference method can be accessed at the following location: www.[employer].com/results. Additional description of the Cologuard test process, warnings and precautions can be found at www.[employer]ts. Stool specimen (specimen) 05/05/2023 10:41 PM EST 05/07/2023 11:50 AM EST us Katina Guevara MD LAB MOLECULAR DIAGNOSTICS O RDERABLES Final Result Performing Organization Address [facility] Co de Phone Number [employer] (CLIA #:[id number]) [address] [place] [address], * ALBUMIN, RANDOM URINE W/CREATININE (04/19/2020 9:14 AM EST) Microalbumin Urine 1.6 See Note: mg/dL [facility] Comment: Reference Range: ?? Reference [...] Creatinine, Urine 68 20 - 320 mg/dL [facility] 04/19/2020 9:14 AM EST us Katina Guevara MD LAB URINE ORDERABLES Final Result Performing Organization Address [facility] de Phone Number [facility] [address] from Last 3 Months or Most Recently Relevant to Health Maintenance Insurance [facility] [place] [address] [place] [address] Care Teams Occupational Health And Safety Adviser Relationship Specialty Start Date End Date Katina Guevara MD [address] [place] [phone] PCP - General Internal Medicine 06/28/20
--- OUTSIDE RECORDS SUMMARY | 2024-07-31 16:11 | XMS_ITS | Encounter Summary ---
Author Organization [employer] Address [address] [place] [address] Care Team Providers Care Leasing Coordinator Name Role Phone Katina Guevara MD Primary Care Provider [phone] Encounter Details Date Type Department Care Team (Late st Contact Info) Description 02/13/[address] [facility] MED & PEDS [address] [place] [address] Katina Guevara MD [address] [place] [address] Social History Tobacco Use Types Packs/Day Years [...] Description 09/28/2024 4:00 PM EDT Office Visit [facility] PEDS [address] [place] [address] Katina Guevara MD [address] [place] [address] documented as of this encounter Visit Diagnoses Not on filedocumented in this encounter Care Teams Leasing Coordinator Relationship Specialty Start Date End Date Katina Guevara MD [address] [place] [address] PCP - General Internal Medicine 06/28/20 documented as of this encounter
--- OUTSIDE RECORDS SUMMARY | 2024-07-31 16:11 | XMS_ITS | Encounter Summary ---
Author Organization [employer] Address [address] [place] [address] Care Team Providers Care Consulting Technical Director Name Role Phone Katina Guevara MD Primary Care Provider [phone] Reason for Referral * Medications - Closed Specialty Diagnoses / Procedures Referred By Contyaquelin t Referred To Contact Diagnoses Type 2 diabetes mellitus with diabetic dermatitis (CMS/HCC) Katina Guevara MD [address] [place] [address] Phone: tel: fax: Referral ID Status Reason Start Date Expiration Date Visits Re quested Visits Authorized [id number] Closed 1 1 Encounter Details Date Type Department Care Team ([facility] Contact Info) Description 10/25/2023 Orders Only [facility] [address] [place] [address] Katina Guevara MD [address] [place] [address] Acquired hypothyroidism; Type 2 diabetes mellitus with [...] Description 09/28/2024 4:00 PM EDT Office Visit [facility] MED & PEDS [address] [place] [address] Katina Guevara MD [address] [place] [address] documented as of this encounter Visit Diagnoses Diagnosis Acquired hypothyroidism Unspecified hypothyroidism Type 2 diabetes mellitus with diabetic dermatitis ([facility]/HCC) documented in this encounter Care Teams Consulting Technical Director Relationship Specialty Start Date End Date Katina Guevara MD [address] [place] [address] PCP - General Internal Medicine 06/28/20 documented as of this encounter
--- OUTSIDE RECORDS SUMMARY | 2024-07-31 16:11 | XMS_ITS | Encounter Summary ---
Author Organization [employer] Address [address] [place] [address] Care Team Providers Care Cytometry Technologist Name Role Phone Katina Guevara MD Primary Care Provider [phone] Reason for Visit * Reason Comments Med Refill Encounter Details Date Type Department Care Team (Late st Contact Info) Description 02/03/2023 Refill [facility] [address] [place] [address] Katina Guevara MD [address] [place] [address] Social History Tobacco Use Types Packs/Day Years [...] Description 09/28/2024 4:00 PM EDT Office Visit [facility] [address] [place] [address] Katina Guevara MD [address] [place] [address] documented as of this encounter Visit Diagnoses Not on filedocumented in this encounter Care Teams Cytometry Technologist Relationship Specialty Start Date End Date Katina Guevara MD [address] [place] [phone] PCP - General Internal Medicine 06/28/20 documented as of this encounter
--- OUTSIDE RECORDS SUMMARY | 2024-07-31 16:11 | XMS_ITS | Encounter Summary ---
Author Organization [employer] Address [address] [place] [id number] Care Team Providers Care Body Maker Machine Setter Name Role Phone Katina Guevara MD Primary Care Provider [phone] Encounter Details Date Type Department Care Team (Late Contact Info) Description 06/19/2023 Orders Only [facility] [address] [place] [address] Katina Guevara MD [address] [place] [address] Social History Tobacco Use Types Packs/Day Years [...] 09/28/2024 4:00 PM EDT Office Visit [facility] [address] [place] [address] Katina Guevara MD [address] [place] [address] documented as of this encounter Visit Diagnoses Not on filedocumented in this encounter Care Teams Body Maker Machine Setter Relationship Specialty Start Date End Date Katina Guevara MD [address] [place] [id number] PCP - General Internal Medicine 06/28/20 documented as of this encounter
== END 2024-07-31 15:23 | disposition home or self-care (01) ==
LOC: HO.HCS 14:37
PROVIDERS: PCP Internal Medicine; Visit Provider Internal Medicine
DX: R93.1 Abnormal findings on diagnostic imaging of heart and coronary circulation (principal); E11.8 Type 2 diabetes mellitus with unspecified complications; I10 Essential (primary) hypertension
CPT/HCPCS: 93010; 99204

== ENCOUNTER → 2024-07-31 14:36 | Outpatient (BNVA) | payer OTHER, SELFPAY | PROVIDERS: PCP Internal Medicine; Visit Provider Internal Medicine | DX: R93.1 Abnormal findings on diagnostic imaging of heart and coronary circulation (principal); E11.8 Type 2 diabetes mellitus with unspecified complications; I10 Essential (primary) hypertension; R94.31 Abnormal electrocardiogram [ECG] [EKG]; Z79.84 Long term (current) use of oral hypoglycemic drugs | CPT/HCPCS: 93005 ==

== ENCOUNTER 2024-09-29 18:42 | Outpatient (REF) | payer OTHER, SELFPAY ==
[2024-09-29 19:06] LABS: Creatinine Urine 77.48 mg/dL; Microalbum/Creatinine Ratio Ur 25.8 ug/mg cr (<30)
== END 2024-09-29 18:43 | disposition home or self-care (01) ==
LOC: HO.HHCLNP 18:42
PROVIDERS: Visit Provider Internal Medicine
DX: E11.65 Type 2 diabetes mellitus with hyperglycemia (principal)
CPT/HCPCS: 82043; 82570